=== PATIENT | male | born 1985 | race Caucasian/White ===

== ENCOUNTER → 2016-06-12 | Outpatient (CLI) | payer SELFPAY ==
--- NOTE | 2016-06-12 14:12 | CT ---
EXAMINATION: Non contrast CT head. Coronal and sagittal reformats. HISTORY: Concussion FINDINGS: No evidence of intra or extra axial hemorrhage, mass, midline shift, hydrocephalus or edema. No hypoattenuation changes in the major vascular territories to suggest acute infarct. No abnormal intracranial calcifications are detected. No evidence of substantial vascular calcifica tions. Mucous retention cyst noted within the maxillary sinuses. The right mastoid air cells are hypoplasti c. There is partial opacification of the right middle ear. Pituitary fossa appears unremarkable. The orbits and globes appear intact. Calvarium is intact. No evidence of skull fracture. IMPRESSION: 1. No acute intracranial findings. 2. Mild opacification of right middle ear, correlate clinically.
--- NOTE | 2016-06-12 15:12 | CT ---
EXAMINATION: CT facial bones HISTORY: Loss of consciousness COMPARISON: Head CT from the same day TECHNIQUE: Axial CT images obtained through the facial bones without contrast. Coronal and sagittal reconstructions obtained. FINDINGS: No displaced nasal bone fractures identified. There is possibly a tiny fracture through th e anterior nasal spine, however chronic appearing. There is mild rightward deviation of the nasal se ptum with a spur. The zygomatic arch appears intact. The orbital and maxillary herrera are intact. The maxilla and mandible are intact. The pterygoid plates are preserved. The visualized upper cervical spine is normal. The temporomandibular joints are symmetric. Partial opacification of the right midd le ears again noted. Mucosal thickening and small retention cysts are noted within the maxillary sin uses. There is mild subcutaneous air within the left submandibular region with mild soft tissue swel ling. IMPRESSION: 1. No acute facial bone fracture identified. 2. Partial opacification of the right middle ear. 3. Mild paranasal sinus disease. 4. Probable left submandibular laceration with a trace subcutaneous changes emphysema.
== END ==
LOC: MW.CT 13:01
PROVIDERS: ATTEND General Practice
DX: S06.0X9A Concussion with loss of consciousness of unspecified duration, initial encounter (principal); S00.83XA Contusion of other part of head, initial encounter; H74.8X1 Other specified disorders of right middle ear and mastoid; J34.9 Unspecified disorder of nose and nasal sinuses
CPT/HCPCS: 70450; 70450-26; 70486; 70486-26

== ENCOUNTER 2017-12-25 08:47 | Emergency (ER) | payer BC ==
[2017-12-25] MEDS ORDERED: Ondansetron 4 MG/2 ML SDV IVPUSH ONE (09:18)
[2017-12-25] MEDS ORDERED: Ketorolac 30 MG/ML SDV IVPUSH ONE (09:18)
[2017-12-25] MEDS ORDERED: Sodium Chloride 0.9% 1,000 ML IV ONE (09:18)
--- NOTE | 2017-12-25 09:25 | EDM.PDOC ---
<Chasity Torres - Last Filed: 12/25/17 13:52> ED HPI GENERAL MEDICAL PROBLEM - General Chief Complaint: Abdominal Pain Stated Complaint: LOWER ABD AND BACK PAIN Time Seen by Provider: 12/25/17 09:05 Source of Information: Reports: Patient History Limitations: Reports: No Limitations - History of Present Illness INITIAL COMMENTS - FREE TEXT/NARRATIVE: This patient with Dr. Zurita. Patient's CT showed duodenitis, patient was given pain meds he is currently on Protonix is to continue this. This follow-up is primary care or treatment ER symptoms worsen or change. Patient was given pain meds with decrease in blood pressure. - Related Data Allergies Allergy/AdvReac Type Severity Reaction Status Date / Time No Known Allergies Allergy Verified 12/25/17 09:02 Home Meds: Home Meds Metoprolol Succinate [Toprol XL] 25 mg PO DAILY 12/25/17 [History] Pantoprazole Sodium [Protonix] 40 mg PO DAILY 12/25/17 [History] QUEtiapine Fumarate [Seroquel] 100 mg PO BEDTIME 12/25/17 [History] traMADol HCl [Tramadol HCl] 50 mg PO Q6H PRN #16 tablet 12/25/17 [Rx] ED ROS GENERAL - Review of Systems Review Of Systems: ROS reveals no pertinent complaints other than HPI. Course - Vital Signs Last Recorded V/S: Last Vital Signs Temp 96.6 F 12/25/17 08:59 Pulse 96 12/25/17 12:50 Resp 20 12/25/17 08:59 BP 150/98 H 12/25/17 12:50 Pulse Ox 97 12/25/17 12:50 - Orders/Labs/Meds Labs: Laboratory Tests 12/25/17 12/25/17 12/25/17 Range/Units 09:35 09:35 09:35 WBC 11.91 H (4.0-11.0) K/uL RBC 4.80 (4.50-5.90) M/uL Hgb 16.0 (13.0-17.0) g/dL Hct 45.9 (38.0-50.0) % MCV 95.6 (80.0-98.0) fL MCH 33.3 H (27.0-32.0) pg MCHC 34.9 (31.0-37.0) g/dL RDW Std Deviation 50.7 (28.0-62.0) fl RDW Coeff of Venkatesh 15 (11.0-15.0) % Plt Count 231 (150-400) K/uL MPV 10.60 (7.40-12.00) fL Neut % (Auto) 65.3 (48.0-80.0) % Lymph % (Auto) 21.3 (16.0-40.0) % [place] % (Auto) 9.8 (0.0-15.0) % Eos % (Auto) 3.3 (0.0-7.0) % Baso % (Auto) 0.3 (0.0-1.5) % Neut # (Auto) 7.8 H (1.4-5.7) K/uL Lymph # (Auto) 2.5 H (0.6-2.4) K/uL [place] # (Auto) 1.2 H (0.0-0.8) K/uL Eos # (Auto) 0.4 (0.0-0.7) K/uL Baso # (Auto) 0.0 (0.0-0.1) K/uL Nucleated RBC % 0.0 /100WBC Nucleated RBCs # 0 K/uL Sodium 139 (136-148) mmol/L Potassium 3.2 L (3.5-5.1) mmol/L Chloride 103 (98-107) mmol/L Carbon Dioxide 27.9 (21.0-32.0) mmol/L BUN 8 (7.0-18.0) mg/dL Creatinine 0.9 (0.8-1.3) mg/dL Est Cr Clr Drug Dosing 141.99 mL/min Estimated GFR (MDRD) > 60.0 ml/min Glucose 121 H (74-106) mg/dL Calcium 8.5 (8.5-10.1) mg/dL Total Bilirubin 0.7 (0.2-1.0) mg/dL AST 18 (15-37) IU/L ALT 42 (14-63) IU/L Alkaline Phosphatase 55 (46-116) U/L Total Protein 6.9 (6.4-8.2) g/dL Albumin 3.4 (3.4-5.0) g/dL Globulin 3.5 (2.0-3.5) g/dL Albumin/Globulin Ratio 1.0 L (1.3-2.8) Lipase 143 (73-393) U/L Urine Color YELLOW Urine Appearance CLEAR Urine pH 6.5 (5.0-8.0) Ur Specific [place] 1.015 (1.001-1.035) Urine Protein NEGATIVE (NEGATIVE) mg/dL Urine Glucose (UA) NEGATIVE (NEGATIVE) mg/dL Urine Ketones NEGATIVE (NEGATIVE) mg/dL Urine Occult Blood NEGATIVE (NEGATIVE) Urine Nitrite NEGATIVE (NEGATIVE) Urine Bilirubin NEGATIVE (NEGATIVE) Urine Urobilinogen 0.2 (<2.0) EU/dL Ur Leukocyte Esterase NEGATIVE (NEGATIVE) Urine RBC NONE SEEN (0-2/HPF) Urine WBC 2-3 (0-5/HPF) Ur Epithelial Cells FEW (NONE-FEW) Amorphous Sediment LIGHT (NEGATIVE) Urine Bacteria NOT SEEN (NEGATIVE) Urine Mucus LIGHT (NONE-MOD) Meds: Medications Discontinued Medications Generic Name Dose Route Start Last Admin Trade Name Freq PRN Reason Stop Dose Admin Hydromorphone HCl 1 mg 12/25/17 12:26 12/25/17 12:36 Dilaudid IM 12/25/17 12:27 1 mg ONETIME ONE Administration Sodium Chloride 1,000 mls @ 999 mls/hr 12/25/17 09:18 12/25/17 09:39 Normal Saline IV 12/25/17 10:18 999 mls/hr STAT ONE Administration Ketorolac Tromethamine 30 mg 12/25/17 09:18 12/25/17 09:39 Toradol IVPUSH 12/25/17 09:19 30 mg ONETIME ONE Administration Ondansetron HCl 4 mg 12/25/17 09:18 12/25/17 09:39 Zofran IVPUSH 12/25/17 09:19 4 mg ONETIME ONE Administration Ondansetron HCl 4 mg 12/25/17 12:26 12/25/17 12:36 Zofran Odt PO 12/25/17 12:27 4 mg ONETIME ONE Administration Departure - Departure Time of Disposition: 12:20 Disposition: Home, Self-Care 01 Condition: Good Clinical Impression: Duodenitis, Uncontrolled hypertension Clinical Impression: (Ruled Out): Well-controlled hypertension - Discharge Information *PRESCRIPTION DRUG MONITORING PROGRAM REVIEWED*: No *COPY OF PRESCRIPTION DRUG MONITORING REPORT IN PATIENT MACARIO: No Prescriptions: traMADol HCl [Tramadol HCl] 50 mg PO Q6H PRN #16 tablet PRN Reason: Pain Instructions: Hypertension, [id number], Duodenitis Referrals: PCP,None [Primary Care Provider] - Forms: ED Department Discharge Additional Instructions: The following information is given to patients seen in the emergency department who are being discharged to home. This information is to outline your options for follow-up care. We provide all patients seen in our emergency department with a follow-up referral. The need for follow-up, as well as the timing and circumstances, are variable depending upon the specifics of your emergency department visit. If you don't have a primary care physician on staff, we will provide you with a referral. We always advise you to contact your personal physician following an emergency department visit to inform them of the circumstance of the visit and for follow-up with them and/or the need for any referrals to a consulting specialist. The emergency department will also refer you to a specialist when appropriate. This referral assures that you have the opportunity for follow-up care with a specialist. All of these measure are taken in an effort to provide you with optimal care, which includes your follow-up. Under all circumstances we always encourage you to contact your private physician who remains a resource for coordinating your care. When calling for follow-up care, please make the office aware that this follow-up is from your recent emergency room visit. If for any reason you are refused follow-up, please contact the [facility] Emergency Department at and asked to speak to the emergency department charge nurse. Follow-up with primary care return if symptoms worsen or change. [facility] [address] [place] [id number] <Sophia Zurita - Last Filed: 12/25/17 18:06> ED HPI GENERAL MEDICAL PROBLEM - History of Present Illness INITIAL COMMENTS - FREE TEXT/NARRATIVE: HISTORY AND PHYSICAL: History of present illness: The patient is a 32-year-old male who presents to the ER with 2 day history of right-sided flank, right lower quadrant and midepigastric pain. The patient reports that the pain is sharp, constant, and rates it 8-9/10. Associated symptoms include nausea/ vomiting. Yesterday he had burning and trouble urinating but this has improved today. The patient denies any constipation, diarrhea, blood in the stool/urine or fever, chills. Last bowel movement was this morning. Patient has a past history of kidney stones and states the pain is very similar. The patient also has a history of ulcer for which he takes Protonix. [] Review of systems: As per history of present illness and below otherwise all systems reviewed and negative. Past medical history: As per history of present illness and as reviewed below otherwise noncontributory. Surgical history: As per history of present illness and as reviewed below otherwise noncontributory. Social history: No reported history of drug or alcohol abuse. Family history: As per history of present illness and as reviewed below otherwise noncontributory. Physical exam: HEENT: Atraumatic, normocephalic, pupils reactive, negative for conjunctival pallor or scleral icterus, mucous membranes dry, throat clear, neck supple, nontender, trachea midline. Lungs: Clear to auscultation, breath sounds equal bilaterally, chest nontender. Heart: S1S2, regular, negative for clicks, rubs, or JVD. Abdomen: Soft, nondistended, tender to palpation right flank, RLQ, RUQ, no rebound or guarding. Negative for masses or hepatosplenomegaly. Positive for costovertebral tenderness on right.. Pelvis: Stable nontender. Genitourinary: Deferred. Rectal: Deferred. Extremities: Atraumatic, negative for cords or calf pain. Neurovascular unremarkable. Neuro: Awake, alert, oriented. Cranial nerves II through XII unremarkable. Cerebellum unremarkable. Motor and sensory unremarkable throughout. Exam nonfocal. Diagnostics: [CBC, CMP, lipase, UA, CT ab/pelvis with and without contrast] Therapeutics: [IV fluids, Zofran, and Toradol. Patient does not want anything stronger than toradol, no narcotics.] Impression: [abdominal pain, nephropathies vs ulcer vs appendicitis] Plan: [Care transitioned to Dr. Torres, CT pending] Definitive disposition and diagnosis as appropriate pending reevaluation and review of above. Abdomen Pain Score (Numeric/FACES): 9 Past Medical History Cardiovascular History: Reports: Hypertension Genitourinary History: Reports: Renal Calculus - Infectious Disease History Infectious Disease History: Reports: Chicken Pox, MRSA - Past Surgical History HEENT Surgical History: Reports: Tonsillectomy, Other (See Below) Other HEENT Surgeries/Procedures: rhinoplasty GI Surgical History: Reports: Cholecystectomy Social & Family History - Family History Family Medical History: Noncontributory - Tobacco Use Smoking Status *Q: Current Every Day Smoker Years of Tobacco use: 10 Packs/Tins Daily: 1 - Caffeine Use Caffeine Use: Reports: Energy Drinks - Recreational Drug Use Recreational Drug Use: No ED ROS GENERAL - Review of Systems Review Of Systems: See Below (see dictation) ED EXAM, GENERAL - Physical Exam Exam: See Below (see dictation) Course - Orders/Labs/Meds Labs: Laboratory Tests 12/25/17 12/25/17 12/25/17 Range/Units 09:35 09:35 09:35 WBC 11.91 H (4.0-11.0) K/uL RBC 4.80 (4.50-5.90) M/uL Hgb 16.0 (13.0-17.0) g/dL Hct 45.9 (38.0-50.0) % MCV 95.6 (80.0-98.0) fL MCH 33.3 H (27.0-32.0) pg MCHC 34.9 (31.0-37.0) g/dL RDW Std Deviation 50.7 (28.0-62.0) fl RDW Coeff of Venkatesh 15 (11.0-15.0) % Plt Count 231 (150-400) K/uL MPV 10.60 (7.40-12.00) fL Neut % (Auto) 65.3 (48.0-80.0) % Lymph % (Auto) 21.3 (16.0-40.0) % [place] % (Auto) 9.8 (0.0-15.0) % Eos % (Auto) 3.3 (0.0-7.0) % Baso % (Auto) 0.3 (0.0-1.5) % Neut # (Auto) 7.8 H (1.4-5.7) K/uL Lymph # (Auto) 2.5 H (0.6-2.4) K/uL [place] # (Auto) 1.2 H (0.0-0.8) K/uL Eos # (Auto) 0.4 (0.0-0.7) K/uL Baso # (Auto) 0.0 (0.0-0.1) K/uL Nucleated RBC % 0.0 /100WBC Nucleated RBCs # 0 K/uL Sodium 139 (136-148) mmol/L Potassium 3.2 L (3.5-5.1) mmol/L Chloride 103 (98-107) mmol/L Carbon Dioxide 27.9 (21.0-32.0) mmol/L BUN 8 (7.0-18.0) mg/dL Creatinine 0.9 (0.8-1.3) mg/dL Est Cr Clr Drug Dosing 141.99 mL/min Estimated GFR (MDRD) > 60.0 ml/min Glucose 121 H (74-106) mg/dL Calcium 8.5 (8.5-10.1) mg/dL Total Bilirubin 0.7 (0.2-1.0) mg/dL AST 18 (15-37) IU/L ALT 42 (14-63) IU/L Alkaline Phosphatase 55 (46-116) U/L Total Protein 6.9 (6.4-8.2) g/dL Albumin 3.4 (3.4-5.0) g/dL Globulin 3.5 (2.0-3.5) g/dL Albumin/Globulin Ratio 1.0 L (1.3-2.8) Lipase 143 (73-393) U/L Urine Color YELLOW Urine Appearance CLEAR Urine pH 6.5 (5.0-8.0) Ur Specific [place] 1.015 (1.001-1.035) Urine Protein NEGATIVE (NEGATIVE) mg/dL Urine Glucose (UA) NEGATIVE (NEGATIVE) mg/dL Urine Ketones NEGATIVE (NEGATIVE) mg/dL Urine Occult Blood NEGATIVE (NEGATIVE) Urine Nitrite NEGATIVE (NEGATIVE) Urine Bilirubin NEGATIVE (NEGATIVE) Urine Urobilinogen 0.2 (<2.0) EU/dL Ur Leukocyte Esterase NEGATIVE (NEGATIVE) Urine RBC NONE SEEN (0-2/HPF) Urine WBC 2-3 (0-5/HPF) Ur Epithelial Cells FEW (NONE-FEW) Amorphous Sediment LIGHT (NEGATIVE) Urine Bacteria NOT SEEN (NEGATIVE) Urine Mucus LIGHT (NONE-MOD) Meds: Medications Discontinued Medications Generic Name Dose Route Start Last Admin Trade Name Deisi PRN Reason Stop Dose Admin Hydromorphone HCl 1 mg 12/25/17 12:26 12/25/17 12:36 Dilaudid IM 12/25/17 12:27 1 mg ONETIME ONE Administration Sodium Chloride 1,000 mls @ 999 mls/hr 12/25/17 09:18 12/25/17 09:39 Normal Saline IV 12/25/17 10:18 999 mls/hr STAT ONE Administration Ketorolac Tromethamine 30 mg 12/25/17 09:18 12/25/17 09:39 Toradol IVPUSH 12/25/17 09:19 30 mg ONETIME ONE Administration Ondansetron HCl 4 mg 12/25/17 09:18 12/25/17 09:39 Zofran IVPUSH 12/25/17 09:19 4 mg ONETIME ONE Administration Ondansetron HCl 4 mg 12/25/17 12:26 12/25/17 12:36 Zofran Odt PO 12/25/17 12:27 4 mg ONETIME ONE Administration
[2017-12-25 10:10] LABS: CHLORIDE,CL 103 mmol/L (98-107); SODIUM,NA 139 mmol/L (136-148)
--- NOTE | 2017-12-25 11:46 | CT ---
CT of the abdomen and pelvis with and without contrast. HISTORY: Pain TECHNIQUE: Axial CT images were obtained of the abdomen and pelvis before and following administration of 100 mL of Isovue-370 in the left and without complication. Coronal and sagittal reconstructions obtained. FINDINGS: Mild dependent atelectasis. There is moderate fatty infiltration of the liver. Cholecystectomy clips are noted. The adrenal glands and spleen appear normal. No bulky retroperitoneal lymphadenopathy or abdominal ascites. There is moderate stranding adjacent to the duodenum and head of the pancreas. No free air noted. The body and tail of pancreas appear normal. The kidneys enhance and function symmetrically without evidence of obstructive uropathy. Punctate nonobstructing stones noted. The large and small bowel are normal in caliber without evidence of obstruction. No pericolonic inflammation or stranding. Appendix is normal. There is no bulky retroperitoneal lymphadenopathy or abdominal ascites. Urinary bladder is normal. Stable sclerotic changes noted adjacent to the left SI joint. IMPRESSION: 1. Moderate stranding adjacent to the duodenum and less so the pancreas. This most likely represents duodenitis/peptic ulcer disease. Less likely this could represent pancreatitis. 2. Punctate nonobstructing nephrolithiasis. 3. Moderate fatty infiltration of the liver.
[2017-12-25] MEDS ORDERED: Ondansetron 4 MG Tab.DIS PO ONE (12:26)
[2017-12-25] MEDS ORDERED: HYDROmorphone 2 MG/ML SDV IM ONE (12:26)
[2017-12-25 13:00] VITALS: BP 150/98
== END 2017-12-25 12:50 | disposition home or self-care (01) ==
LOC: MW.ED 08:47
DX: K29.80 Duodenitis without bleeding (principal); I10 Essential (primary) hypertension; F17.210 Nicotine dependence, cigarettes, uncomplicated; Z79.899 Other long term (current) drug therapy
CPT/HCPCS: 36415; 74178; 80053; 81001; 83690; 85025; 96361; 96372; 96374; 96375; 99284; A9270; J1170; J1885; J2405; J7040; 99283

== ENCOUNTER 2018-11-24 03:03 | Observation (INO) | payer BC ==
[2018-11-24] MEDS ORDERED: Sodium Chloride 0.9% 1,000 ML IV ONE (03:10)
[2018-11-24] MEDS ORDERED: Pantoprazole 40 MG Vial IVPUSH ONE (03:10)
[2018-11-24] MEDS ORDERED: Ondansetron 4 MG/2 ML SDV IVPUSH ONE (03:10)
[2018-11-24] MEDS ORDERED: Ketorolac 30 MG/ML SDV IVPUSH ONE (03:10)
--- NOTE | 2018-11-24 03:11 | EDM.PDOC ---
ED HPI GENERAL MEDICAL PROBLEM - General Stated Complaint: STOMACH PAIN Time Seen by Provider: 11/24/18 03:11 Source of Information: Reports: Patient - History of Present Illness INITIAL COMMENTS - FREE TEXT/NARRATIVE: HISTORY AND PHYSICAL: History of present illness: [Patient presents with abdominal pain increasing in severity over the last 2 days epigastric radiating to the back no fever he has had some vomiting no chills or sweats no chest pain shortness breath headache dizziness palpitation no bowel or urine symptoms pain is 8 out of 10 radiating to the back as above Review of systems: As per history of present illness and below otherwise all systems reviewed and negative. Past medical history: As per history of present illness and as reviewed below otherwise noncontributory. Surgical history: As per history of present illness and as reviewed below otherwise noncontributory. Social history: No reported history of drug or alcohol abuse. Family history: As per history of present illness and as reviewed below otherwise noncontributory. Physical exam: HEENT: Atraumatic, normocephalic, pupils reactive, negative for conjunctival pallor or scleral icterus, mucous membranes moist, throat clear, neck supple, nontender, trachea midline. Lungs: Clear to auscultation, breath sounds equal bilaterally, chest nontender. Heart: S1S2, regular, negative for clicks, rubs, or JVD. Abdomen: Soft, nondistended, diffuse tenderness with focus in the epigastrium Negative for masses or hepatosplenomegaly. Negative for costovertebral tenderness. Pelvis: Stable nontender. Genitourinary: Deferred. Rectal: Deferred. Extremities: Atraumatic, negative for cords or calf pain. Neurovascular unremarkable. Neuro: Awake, alert, oriented. Cranial nerves II through XII unremarkable. Cerebellum unremarkable. Motor and sensory unremarkable throughout. Exam nonfocal. Diagnostics: CBC CMP lipase UA Abdomen pelvis with] Therapeutics: [Saline Zofran Toradol Morphine ] Impression: Clinical pancreatitis Abdominal pain Definitive disposition and diagnosis as appropriate pending reevaluation and review of above. Right Abdomen Pain Score (Numeric/FACES): 9 - Related Data Allergies Allergy/AdvReac Type Severity Reaction Status Date / Time No Known Allergies Allergy Verified 11/24/18 03:24 Home Meds: Home Meds Metoprolol Succinate [Toprol XL] 50 mg PO DAILY 12/25/17 [History] Pantoprazole Sodium [Protonix] 40 mg PO DAILY 12/25/17 [History] QUEtiapine Fumarate [Seroquel] 100 mg PO BEDTIME 12/25/17 [History] Past Medical History Cardiovascular History: Reports: Hypertension Genitourinary History: Reports: Renal Calculus - Infectious Disease History Infectious Disease History: Reports: Chicken Pox, MRSA - Past Surgical History HEENT Surgical History: Reports: Tonsillectomy, Other (See Below) Other HEENT Surgeries/Procedures: rhinoplasty GI Surgical History: Reports: Cholecystectomy Social & Family History - Family History Family Medical History: Noncontributory - Caffeine Use Caffeine Use: Reports: Energy Drinks ED ROS GENERAL - Review of Systems Review Of Systems: See Below ED EXAM, GENERAL - Physical Exam Exam: See Below Course - Vital Signs Last Recorded V/S: Last Vital Signs Temp 97.4 F 11/24/18 03:20 Pulse 117 H 11/24/18 03:20 Resp 20 11/24/18 03:20 BP 172/115 H 11/24/18 03:20 Pulse Ox 95 11/24/18 03:20 - Orders/Labs/Meds Labs: Laboratory Tests 11/24/18 11/24/18 11/24/18 Range/Units 03:15 03:20 03:20 WBC 13.75 H (4.0-11.0) K/uL RBC 4.53 (4.50-5.90) M/uL Hgb 15.6 (13.0-17.0) g/dL Hct 44.1 (38.0-50.0) % MCV 97.4 (80.0-98.0) fL MCH 34.4 H (27.0-32.0) pg MCHC 35.4 (31.0-37.0) g/dL RDW Std Deviation 47.8 (28.0-62.0) fl RDW Coeff of Venkatesh 14 (11.0-15.0) % Plt Count 256 (150-400) K/uL MPV 10.70 (7.40-12.00) fL Neut % (Auto) 67.5 (48.0-80.0) % Lymph % (Auto) 21.4 (16.0-40.0) % [place] % (Auto) 8.1 (0.0-15.0) % Eos % (Auto) 2.8 (0.0-7.0) % Baso % (Auto) 0.2 (0.0-1.5) % Neut # (Auto) 9.3 H (1.4-5.7) K/uL Lymph # (Auto) 2.9 H (0.6-2.4) K/uL [place] # (Auto) 1.1 H (0.0-0.8) K/uL Eos # (Auto) 0.4 (0.0-0.7) K/uL Baso # (Auto) 0.0 (0.0-0.1) K/uL Nucleated RBC % 0.0 /100WBC Nucleated RBCs # 0 K/uL Sodium 138 (136-148) mmol/L Potassium 3.4 L (3.5-5.1) mmol/L Chloride 100 (98-107) mmol/L Carbon Dioxide 24.9 (21.0-32.0) mmol/L BUN 13 (7.0-18.0) mg/dL Creatinine 1.0 (0.8-1.3) mg/dL Est Cr Clr Drug Dosing 124.40 mL/min Estimated GFR (MDRD) > 60.0 ml/min Glucose 170 H (74-106) mg/dL Calcium 9.3 (8.5-10.1) mg/dL Total Bilirubin 1.1 H (0.2-1.0) mg/dL AST 35 (15-37) IU/L ALT 102 H (14-63) IU/L Alkaline Phosphatase 72 (46-116) U/L Total Protein 6.8 (6.4-8.2) g/dL Albumin 3.5 (3.4-5.0) g/dL Globulin 3.3 (2.6-4.0) g/dL Albumin/Globulin Ratio 1.1 (0.9-1.6) Lipase 318 (73-393) U/L Urine Color YELLOW Urine Appearance CLEAR Urine pH 6.5 (5.0-8.0) Ur Specific [place] 1.020 (1.001-1.035) Urine Protein NEGATIVE (NEGATIVE) mg/dL Urine Glucose (UA) NEGATIVE (NEGATIVE) mg/dL Urine Ketones NEGATIVE (NEGATIVE) mg/dL Urine Occult Blood NEGATIVE (NEGATIVE) Urine Nitrite NEGATIVE (NEGATIVE) Urine Bilirubin SMALL H (NEGATIVE) Urine Ictotest POSITIVE Urine Urobilinogen 2.0 H (<2.0) EU/dL Ur Leukocyte Esterase NEGATIVE (NEGATIVE) Meds: Medications Discontinued Medications Generic Name Dose Route Start Last Admin Trade Name Deisi PRN Reason Stop Dose Admin Sodium Chloride 1,000 mls @ 999 mls/hr 11/24/18 03:10 11/24/18 03:28 Normal Saline IV 11/24/18 04:10 999 mls/hr STAT ONE Administration Iopamidol 100 ml 11/24/18 04:16 11/24/18 04:17 Isovue Multipack-370 (76%) IVPUSH 11/24/18 04:17 100 ml ONETIME STA Administration Ketorolac Tromethamine 30 mg 11/24/18 03:10 11/24/18 03:31 Toradol IVPUSH 11/24/18 03:11 30 mg ONETIME ONE Administration Morphine Sulfate 4 mg 11/24/18 04:45 11/24/18 04:50 Morphine IVPUSH 11/24/18 04:46 4 mg ONETIME ONE Administration Ondansetron HCl 8 mg 11/24/18 03:10 11/24/18 03:29 Zofran IVPUSH 11/24/18 03:11 8 mg ONETIME ONE Administration Pantoprazole Sodium 80 mg 11/24/18 03:10 11/24/18 03:32 Protonix Iv IVPUSH 11/24/18 03:11 80 mg .BOLUS ONE Administration Sodium Chloride 20 ml 11/24/18 03:15 11/24/18 03:32 Normal Saline FLUSH 11/24/18 03:16 20 ml NOW STA Administration Departure - Departure Time of Disposition: 05:39 Disposition: Home, Self-Care 01 Condition: Good Clinical Impression: Pancreatitis, Abdominal pain - Discharge Information Referrals: Harman Cole MD [Primary Care Provider] -
[2018-11-24] MEDS ORDERED: Sodium Chloride 0.9% 20 ML SDV FLUSH STA (03:15)
[2018-11-24 03:51] LABS: BLOOD UREA NITROGEN,BUN 13 mg/dL (7.0-18.0); CARBON DIOXIDE,CO2 24.9 mmol/L (21.0-32.0); CHLORIDE,CL 100 mmol/L (98-107); GLUCOSE RANDOM 170 mg/dL (74-106); LIPASE 318 U/L (73-393); POTASSIUM,K 3.4 mmol/L (3.5-5.1); SODIUM,NA 138 mmol/L (136-148)
[2018-11-24] MEDS ORDERED: Iopamidol 755 MG/ML 500 ML Multipack Bottle IVPUSH STA (04:16)
[2018-11-24] MEDS ORDERED: Morphine 4 MG/ML Syringe IVPUSH ONE (04:45)
--- NOTE | 2018-11-24 05:27 | CT ---
INDICATION: Abdominal pain TECHNIQUE: CT abdomen and pelvis acquired with IV contrast. 100 mL of Isovue 370 administered. COMPARISON: None available FINDINGS: Lower chest: Unremarkable. Liver: Hepatomegaly measuring 26.3 cm craniocaudally. Hepatic steatosis. Spleen: Splenomegaly measuring 15 cm craniocaudally. Pancreas: Stranding adjacent to the pancreatic head and duodenum. Gallbladder and bile ducts: Cholecystectomy. Adrenal glands: Unremarkable. Kidneys: A partially duplicated left renal collecting system. No hydronephrosis. Punctate nonobstructive right renal calcifications. A 1.9 cm left renal parapelvic cyst. A subcentimeter right renal lower pole low-density lesion, too small to characterize. GI tract: No bowel obstruction. A normal appendix. No significant pericolonic changes. Vascular structures: Unremarkable. Lymph nodes: Borderline and shotty sub centimeter upper abdominal lymph nodes, nonspecific. Miscellaneous: No significant free fluid or free air. Pelvic Organs: A partially contracted bladder. An unremarkable prostate. Bones: Degenerative changes of the lumbosacral junction. Ill-defined sclerosis in the posterior left ilium, nonspecific. IMPRESSION: Stranding adjacent to the pancreatic head and duodenum, suggestive of mild pancreatitis, however could represent primary duodenitis. Correlate clinically and with pancreatic enzymes. Hepatosplenomegaly. Hepatic steatosis. Punctate nonobstructive right renal calcifications. Dictated by Charles Leon MD @ 11/24/2018 5:26:04 AM Please note that all CT scans at this facility use dose modulation, iterative reconstruction, and/or weight-based dosing when appropriate to reduce radiation dose to as low as reasonably achievable. Dictated by: Charles Leon MD @ 11/24/2018 05:26:11 (Electronically Signed)
--- NOTE | 2018-11-24 07:01 | PCM.HP.2 ---
H&P History of Present Illness - General Admit Problem/Dx: Admission Diagnosis/Problem Admission Diagnosis/Problem Pancreatitis Right Abdomen Pain Score (Numeric/FACES): 9 - Related Data Allergies/Adverse Reactions: Allergies Allergy/AdvReac Type Severity Reaction Status Date / Time No Known Allergies Allergy Verified 11/24/18 06:58 Home Medications: Home Meds Metoprolol Succinate [Toprol XL] 50 mg PO DAILY 12/25/17 [History] Pantoprazole Sodium [Protonix] 40 mg PO DAILY 12/25/17 [History] QUEtiapine Fumarate [Seroquel] 100 mg PO BEDTIME 12/25/17 [History] Past Medical History Cardiovascular History: Reports: Hypertension Genitourinary History: Reports: Renal Calculus Psychiatric History: Reports: None Hematologic History: Reports: None Immunologic History: Reports: None Oncologic (Cancer) History: Reports: None - Infectious Disease History Infectious Disease History: Reports: Chicken Pox, MRSA - Past Surgical History HEENT Surgical History: Reports: Tonsillectomy, Other (See Below) Other HEENT Surgeries/Procedures: rhinoplasty GI Surgical History: Reports: Cholecystectomy Social & Family History - Family History Family Medical History: Noncontributory - Tobacco Use Smoking Status *Q: Current Every Day Smoker Years of Tobacco use: 5 Packs/Tins Daily: 1 - Caffeine Use Caffeine Use: Reports: Coffee, Energy Drinks, Soda - Alcohol Use Days Per Week of Alcohol Use: 7 Number of Drinks Per Day: 4 Total Drinks Per Week: 28 - Recreational Drug Use Recreational Drug Use: No Exam - Vital Signs Vital Signs: Last Vital Signs Temp 36.1 C 11/24/18 05:58 Pulse 98 11/24/18 05:58 Resp 20 11/24/18 05:58 BP 166/106 H 11/24/18 05:58 Pulse Ox 96 11/24/18 05:58 Weight: 156.081 kg - Patient Data Lab Results Last 24 hrs: Laboratory Results - last 24 hr 11/24/18 11/24/18 11/24/18 Range/Units 03:15 03:20 03:20 WBC 13.75 H (4.0-11.0) K/uL RBC 4.53 (4.50-5.90) M/uL Hgb 15.6 (13.0-17.0) g/dL Hct 44.1 (38.0-50.0) % MCV 97.4 (80.0-98.0) fL MCH 34.4 H (27.0-32.0) pg MCHC 35.4 (31.0-37.0) g/dL RDW Std Deviation 47.8 (28.0-62.0) fl RDW Coeff of Venkatesh 14 (11.0-15.0) % Plt Count 256 (150-400) K/uL MPV 10.70 (7.40-12.00) fL Neut % (Auto) 67.5 (48.0-80.0) % Lymph % (Auto) 21.4 (16.0-40.0) % [place] % (Auto) 8.1 (0.0-15.0) % Eos % (Auto) 2.8 (0.0-7.0) % Baso % (Auto) 0.2 (0.0-1.5) % Neut # (Auto) 9.3 H (1.4-5.7) K/uL Lymph # (Auto) 2.9 H (0.6-2.4) K/uL [place] # (Auto) 1.1 H (0.0-0.8) K/uL Eos # (Auto) 0.4 (0.0-0.7) K/uL Baso # (Auto) 0.0 (0.0-0.1) K/uL Nucleated RBC % 0.0 /100WBC Nucleated RBCs # 0 K/uL Sodium 138 (136-148) mmol/L Potassium 3.4 L (3.5-5.1) mmol/L Chloride 100 (98-107) mmol/L Carbon Dioxide 24.9 (21.0-32.0) mmol/L BUN 13 (7.0-18.0) mg/dL Creatinine 1.0 (0.8-1.3) mg/dL Est Cr Clr Drug Dosing 124.40 mL/min Estimated GFR (MDRD) > 60.0 ml/min Glucose 170 H (74-106) mg/dL Calcium 9.3 (8.5-10.1) mg/dL Total Bilirubin 1.1 H (0.2-1.0) mg/dL AST 35 (15-37) IU/L ALT 102 H (14-63) IU/L Alkaline Phosphatase 72 (46-116) U/L Total Protein 6.8 (6.4-8.2) g/dL Albumin 3.5 (3.4-5.0) g/dL Globulin 3.3 (2.6-4.0) g/dL Albumin/Globulin Ratio 1.1 (0.9-1.6) Lipase 318 (73-393) U/L Urine Color YELLOW Urine Appearance CLEAR Urine pH 6.5 (5.0-8.0) Ur Specific [place] 1.020 (1.001-1.035) Urine Protein NEGATIVE (NEGATIVE) mg/dL Urine Glucose (UA) NEGATIVE (NEGATIVE) mg/dL Urine Ketones NEGATIVE (NEGATIVE) mg/dL Urine Occult Blood NEGATIVE (NEGATIVE) Urine Nitrite NEGATIVE (NEGATIVE) Urine Bilirubin SMALL H (NEGATIVE) Urine Ictotest POSITIVE Urine Urobilinogen 2.0 H (<2.0) EU/dL Ur Leukocyte Esterase NEGATIVE (NEGATIVE) Result Diagrams: 11/24/18 03:20 11/24/18 03:20 Orders Last 24hrs: Active Orders 24 hr Category Date Time Status Admission Status [Patient Status] [ADT] Stat ADT 11/24/18 05:39 Active
--- NOTE | 2018-11-24 07:55 | PCM.HP.2 ---
<Sophia uZrita - Last Filed: 11/24/18 09:31> H&P History of Present Illness - General Date of Service: 11/24/18 Admit Problem/Dx: Admission Diagnosis/Problem Admission Diagnosis/Problem Pancreatitis - History of Present Illness Initial Comments - Free Text/Narative: The patient is a 32-year-old male who presented to the ER with several day history of abdominal pain. Reports he had epigastric and right upper quadrant pain over the weekend that intensified over the last 48 hours. He reports the pain as constant and worse with moving. He had associated vomiting and diarrhea. Denies black or bloody stools and reports the diarrhea as more loose , not watery. Emesis was nonbilious, nonbloody. Patient reports he has a couple mixed drinks every night but has never gone through withdrawal. Reports past medical gastric ulcers, has been on Protonix for years. Last EGD was last year. History of cholecystectomy. In the ER, lab work showed an elevated white count of 13.7, elevated ALT, a lipase of 381. CT of the abdomen, pelvis showed stranding in the pancreatic head and duodenum, possibly pancreatitis versus duodenitis. In the ER he was given pain medication, Zofran, pantoprazole and IV fluids. PCP- Douglas Right Abdomen Pain Score (Numeric/FACES): 9 - Related Data Allergies/Adverse Reactions: Allergies Allergy/AdvReac Type Severity Reaction Status Date / Time No Known Allergies Allergy Verified 11/24/18 06:58 Home Medications: Home Meds Metoprolol Succinate [Toprol XL] 50 mg PO DAILY 12/25/17 [History] Pantoprazole Sodium [Protonix] 40 mg PO DAILY 12/25/17 [History] QUEtiapine Fumarate [Seroquel] 100 mg PO BEDTIME 12/25/17 [History] amLODIPine Besylate [Amlodipine Besylate] 10 mg PO 11/24/18 [History] Past Medical History Cardiovascular History: Reports: Hypertension Gastrointestinal History: Reports: Pancreatitis Genitourinary History: Reports: Renal Calculus Psychiatric History: Reports: None Hematologic History: Reports: None Immunologic History: Reports: None Oncologic (Cancer) History: Reports: None - Infectious Disease History Infectious Disease History: Reports: Chicken Pox, MRSA - Past Surgical History HEENT Surgical History: Reports: Tonsillectomy, Other (See Below) Other HEENT Surgeries/Procedures: rhinoplasty GI Surgical History: Reports: Cholecystectomy Social & Family History - Family History Family Medical History: Noncontributory - Tobacco Use Smoking Status *Q: Current Every Day Smoker Years of Tobacco use: 5 Packs/Tins Daily: 1 - Caffeine Use Caffeine Use: Reports: Coffee, Energy Drinks, Soda - Alcohol Use Days Per Week of Alcohol Use: 7 Number of Drinks Per Day: 4 Total Drinks Per Week: 28 - Recreational Drug Use Recreational Drug Use: No H&P Review of Systems - Review of Systems: Review Of Systems: See Below General: Reports: No Symptoms HEENT: Reports: No Symptoms Pulmonary: Reports: No Symptoms Cardiovascular: Reports: No Symptoms Gastrointestinal: Reports: Abdominal Pain, Diarrhea, Nausea Genitourinary: Reports: No Symptoms Musculoskeletal: Reports: No Symptoms Skin: Reports: No Symptoms Psychiatric: Reports: No Symptoms Neurological: Reports: No Symptoms Hematologic/Lymphatic: Reports: No Symptoms Immunologic: Reports: No Symptoms Exam - Exam Exam: See Below - Vital Signs Vital Signs: Last Vital Signs Temp 97.0 F 11/24/18 05:58 Pulse 98 11/24/18 05:58 Resp 20 11/24/18 05:58 BP 166/106 H 11/24/18 05:58 Pulse Ox 96 11/24/18 05:58 Weight: 156.081 kg - Exam General: Alert, Oriented, Cooperative HEENT: Conjunctiva Clear, Mucosa Moist & [place], Posterior Pharynx Clear, Pupils Equal, Pupils Reactive, TMs Clear Neck: Supple, Trachea Midline Lungs: Clear to Auscultation, Normal Respiratory Effort Cardiovascular: Regular Rate, Regular Rhythm GI/Abdominal Exam: Normal Bowel Sounds, Soft, Tender (epigastric and RUQ) Extremities: No Pedal Edema Skin: Warm, Dry, Intact Psychiatric: Alert, Normal Affect, Normal Mood - Patient Data Lab Results Last 24 hrs: Laboratory Results - last 24 hr 11/24/18 11/24/18 11/24/18 Range/Units 03:15 03:20 03:20 WBC 13.75 H (4.0-11.0) K/uL RBC 4.53 (4.50-5.90) M/uL Hgb 15.6 (13.0-17.0) g/dL Hct 44.1 (38.0-50.0) % MCV 97.4 (80.0-98.0) fL MCH 34.4 H (27.0-32.0) pg MCHC 35.4 (31.0-37.0) g/dL RDW Std Deviation 47.8 (28.0-62.0) fl RDW Coeff of Venkatesh 14 (11.0-15.0) % Plt Count 256 (150-400) K/uL MPV 10.70 (7.40-12.00) fL Neut % (Auto) 67.5 (48.0-80.0) % Lymph % (Auto) 21.4 (16.0-40.0) % [place] % (Auto) 8.1 (0.0-15.0) % Eos % (Auto) 2.8 (0.0-7.0) % Baso % (Auto) 0.2 (0.0-1.5) % Neut # (Auto) 9.3 H (1.4-5.7) K/uL Lymph # (Auto) 2.9 H (0.6-2.4) K/uL [place] # (Auto) 1.1 H (0.0-0.8) K/uL Eos # (Auto) 0.4 (0.0-0.7) K/uL Baso # (Auto) 0.0 (0.0-0.1) K/uL Nucleated RBC % 0.0 /100WBC Nucleated RBCs # 0 K/uL Sodium 138 (136-148) mmol/L Potassium 3.4 L (3.5-5.1) mmol/L Chloride 100 (98-107) mmol/L Carbon Dioxide 24.9 (21.0-32.0) mmol/L BUN 13 (7.0-18.0) mg/dL Creatinine 1.0 (0.8-1.3) mg/dL Est Cr Clr Drug Dosing 124.40 mL/min Estimated GFR (MDRD) > 60.0 ml/min Glucose 170 H (74-106) mg/dL Calcium 9.3 (8.5-10.1) mg/dL Total Bilirubin 1.1 H (0.2-1.0) mg/dL AST 35 (15-37) IU/L ALT 102 H (14-63) IU/L Alkaline Phosphatase 72 (46-116) U/L Total Protein 6.8 (6.4-8.2) g/dL Albumin 3.5 (3.4-5.0) g/dL Globulin 3.3 (2.6-4.0) g/dL Albumin/Globulin Ratio 1.1 (0.9-1.6) Lipase 318 (73-393) U/L Urine Color YELLOW Urine Appearance CLEAR Urine pH 6.5 (5.0-8.0) Ur Specific [place] 1.020 (1.001-1.035) Urine Protein NEGATIVE (NEGATIVE) mg/dL Urine Glucose (UA) NEGATIVE (NEGATIVE) mg/dL Urine Ketones NEGATIVE (NEGATIVE) mg/dL Urine Occult Blood NEGATIVE (NEGATIVE) Urine Nitrite NEGATIVE (NEGATIVE) Urine Bilirubin SMALL H (NEGATIVE) Urine Ictotest POSITIVE Urine Urobilinogen 2.0 H (<2.0) EU/dL Ur Leukocyte Esterase NEGATIVE (NEGATIVE) Result Diagrams: 11/24/18 03:20 11/24/18 03:20 - Problem List (1) HTN (hypertension) SNOMED Code(s): 45428608 ICD Code: I10 - ESSENTIAL (PRIMARY) HYPERTENSION Status: Acute Current Visit: Yes (2) Insomnia SNOMED Code(s): 223522585 ICD Code: G47.00 - INSOMNIA, UNSPECIFIED Status: Acute Current Visit: Yes (3) Abdominal pain SNOMED Code(s): 98410566 ICD Code: R10.9 - UNSPECIFIED ABDOMINAL PAIN Status: Acute Current Visit : Yes (4) Pancreatitis SNOMED Code(s): 75970930 ICD Code: K85.90 - ACUTE PANCREATITIS WITHOUT NECROSIS OR INFECTION, UNSP Status: Acute Current Visit: Yes (5) Duodenitis SNOMED Code(s): 39483579 ICD Code: K29.80 - DUODENITIS WITHOUT BLEEDING Status: Acute Current Visit: No Problem List Initiated/Reviewed/Updated: Yes Orders Last 24hrs: Active Orders 24 hr Category Date Time Status Admission Status [Patient Status] [ADT] Stat ADT 11/24/18 05:39 Active Assessment/Plan Comment:: 1. Admit for observation 2. Code status- full 3. Vitals per routine 4. I/Os per routine 5. Diet- clear liquid 6. DVT prophylaxis with lovenox 7. Epigastric/RUQ pain secondary to chronic pancreatitis vs duodenitis- No signifcant elevation in lipase but stranding seen on CT. Clear liquid diet, IVF , zofran prn, morphine prn. Check lipid pane. Continue IV protonix. 8. Chronic conditions- HTN, insomnia- continue home meds <Artur Holley - Last Filed: 11/24/18 16:28> H&P History of Present Illness - General Admit Problem/Dx: Admission Diagnosis/Problem Admission Diagnosis/Problem Pancreatitis I have seen and examined the patient independently of Dr. Parminder DO. I have reviewed and agree with the plan of care as outlined for this patient by her. I have discussed the case with her. Please see orders. Exam - Vital Signs Vital Signs: Last Vital Signs Temp 36.3 C 11/24/18 16:00 Pulse 76 11/24/18 16:00 Resp 22 H 11/24/18 16:00 BP 162/82 H 11/24/18 16:00 Pulse Ox 98 11/24/18 16:00 - Patient Data Lab Results Last 24 hrs: Laboratory Results - last 24 hr 11/24/18 11/24/18 11/24/18 Range/Units 03:15 03:20 03:20 WBC 13.75 H (4.0-11.0) K/uL RBC 4.53 (4.50-5.90) M/uL Hgb 15.6 (13.0-17.0) g/dL Hct 44.1 (38.0-50.0) % MCV 97.4 (80.0-98.0) fL MCH 34.4 H (27.0-32.0) pg MCHC 35.4 (31.0-37.0) g/dL RDW Std Deviation 47.8 (28.0-62.0) fl RDW Coeff of Venkatesh 14 (11.0-15.0) % Plt Count 256 (150-400) K/uL MPV 10.70 (7.40-12.00) fL Neut % (Auto) 67.5 (48.0-80.0) % Lymph % (Auto) 21.4 (16.0-40.0) % [place] % (Auto) 8.1 (0.0-15.0) % Eos % (Auto) 2.8 (0.0-7.0) % Baso % (Auto) 0.2 (0.0-1.5) % Neut # (Auto) 9.3 H (1.4-5.7) K/uL Lymph # (Auto) 2.9 H (0.6-2.4) K/uL [place] # (Auto) 1.1 H (0.0-0.8) K/uL Eos # (Auto) 0.4 (0.0-0.7) K/uL Baso # (Auto) 0.0 (0.0-0.1) K/uL Nucleated RBC % 0.0 /100WBC Nucleated RBCs # 0 K/uL Sodium 138 (136-148) mmol/L Potassium 3.4 L (3.5-5.1) mmol/L Chloride 100 (98-107) mmol/L Carbon Dioxide 24.9 (21.0-32.0) mmol/L BUN 13 (7.0-18.0) mg/dL Creatinine 1.0 (0.8-1.3) mg/dL Est Cr Clr Drug Dosing 124.40 mL/min Estimated GFR (MDRD) > 60.0 ml/min Glucose 170 H (74-106) mg/dL Calcium 9.3 (8.5-10.1) mg/dL Total Bilirubin 1.1 H (0.2-1.0) mg/dL AST 35 (15-37) IU/L ALT 102 H (14-63) IU/L Alkaline Phosphatase 72 (46-116) U/L Total Protein 6.8 (6.4-8.2) g/dL Albumin 3.5 (3.4-5.0) g/dL Globulin 3.3 (2.6-4.0) g/dL Albumin/Globulin Ratio 1.1 (0.9-1.6) Triglycerides (0-200) mg/dL Cholesterol (50-200) mg/dL LDL Cholesterol, Calc (60-180) mg/dL VLDL Cholesterol (5-55) mg/dL HDL Cholesterol (40-60) mg/dL Cholesterol/HDL Ratio (3.3-6.0) Lipase 318 (73-393) U/L Urine Color YELLOW Urine Appearance CLEAR Urine pH 6.5 (5.0-8.0) Ur Specific [place] 1.020 (1.001-1.035) Urine Protein NEGATIVE (NEGATIVE) mg/dL Urine Glucose (UA) NEGATIVE (NEGATIVE) mg/dL Urine Ketones NEGATIVE (NEGATIVE) mg/dL Urine Occult Blood NEGATIVE (NEGATIVE) Urine Nitrite NEGATIVE (NEGATIVE) Urine Bilirubin SMALL H (NEGATIVE) Urine Ictotest POSITIVE Urine Urobilinogen 2.0 H (<2.0) EU/dL Ur Leukocyte Esterase NEGATIVE (NEGATIVE) 11/24/18 Range/Units 03:20 WBC (4.0-11.0) K/uL RBC (4.50-5.90) M/uL Hgb (13.0-17.0) g/dL Hct (38.0-50.0) % MCV (80.0-98.0) fL MCH (27.0-32.0) pg MCHC (31.0-37.0) g/dL RDW Std Deviation (28.0-62.0) fl RDW Coeff of Venkatesh (11.0-15.0) % Plt Count (150-400) K/uL MPV (7.40-12.00) fL Neut % (Auto) (48.0-80.0) % Lymph % (Auto) (16.0-40.0) % [place] % (Auto) (0.0-15.0) % Eos % (Auto) (0.0-7.0) % Baso % (Auto) (0.0-1.5) % Neut # (Auto) (1.4-5.7) K/uL Lymph # (Auto) (0.6-2.4) K/uL [place] # (Auto) (0.0-0.8) K/uL Eos # (Auto) (0.0-0.7) K/uL Baso # (Auto) (0.0-0.1) K/uL Nucleated RBC % /100WBC Nucleated RBCs # K/uL Sodium (136-148) mmol/L Potassium (3.5-5.1) mmol/L Chloride (98-107) mmol/L Carbon Dioxide (21.0-32.0) mmol/L BUN (7.0-18.0) mg/dL Creatinine (0.8-1.3) mg/dL Est Cr Clr Drug Dosing mL/min Estimated GFR (MDRD) ml/min Glucose (74-106) mg/dL Calcium (8.5-10.1) mg/dL Total Bilirubin (0.2-1.0) mg/dL AST (15-37) IU/L ALT (14-63) IU/L Alkaline Phosphatase (46-116) U/L Total Protein (6.4-8.2) g/dL Albumin (3.4-5.0) g/dL Globulin (2.6-4.0) g/dL Albumin/Globulin Ratio (0.9-1.6) Triglycerides 380 H (0-200) mg/dL Cholesterol 246 H (50-200) mg/dL LDL Cholesterol, Calc 128 (60-180) mg/dL VLDL Cholesterol 76 H (5-55) mg/dL HDL Cholesterol 42 (40-60) mg/dL Cholesterol/HDL Ratio 5.9 (3.3-6.0) Lipase (73-393) U/L Urine Color Urine Appearance Urine pH (5.0-8.0) Ur Specific [place] (1.001-1.035) Urine Protein (NEGATIVE) mg/dL Urine Glucose (UA) (NEGATIVE) mg/dL Urine Ketones (NEGATIVE) mg/dL Urine Occult Blood (NEGATIVE) Urine Nitrite (NEGATIVE) Urine Bilirubin (NEGATIVE) Urine Ictotest Urine Urobilinogen (<2.0) EU/dL Ur Leukocyte Esterase (NEGATIVE) Result Diagrams: 11/24/18 03:20 11/24/18 03:20 Orders Last 24hrs: Active Orders 24 hr Category Date Time Status Admission Status [Patient Status] [ADT] Stat ADT 11/24/18 05:39 Active Intake and Output [RC] Q12H Care 11/24/18 08:00 Active Vital Signs [RC] PER UNIT ROUTINE Care 11/24/18 08:00 Active Clear Liquid Diet [DIET] Diet 11/24/18 Lunch Active BASIC METABOLIC PANEL,BMP [CHEM] AM Lab 11/25/18 05:11 Ordered CBC WITH AUTO DIFF [HEME] AM Lab 11/25/18 05:11 Ordered Acetaminophen [Tylenol] Med 11/24/18 09:33 Active 650 mg PO Q4H PRN Enoxaparin [Lovenox] Med 11/24/18 08:00 Active 40 mg SUBCUT Q24H Metoprolol Succinate [Toprol XL] Med 11/24/18 09:00 Active 50 mg PO DAILY Morphine Med 11/24/18 10:06 Active 2 mg IVPUSH Q4H PRN Ondansetron [Zofran] Med 11/24/18 08:00 Active 4 mg IVPUSH Q4H PRN Pantoprazole [ProTONIX IV] 40 mg Med 11/24/18 08:15 Active Sodium Chloride 0.9% [Normal Saline] 10 ml IV Q24H QUEtiapine [SEROquel] Med 11/24/18 21:00 Active 100 mg PO BEDTIME Sodium Chloride 0.9% [Normal Saline] 1,000 ml Med 11/24/18 08:00 Active IV ASDIRECTED Resuscitation Status Routine Resus Stat 11/24/18 08:00 Ordered Medication Orders Acetaminophen (Tylenol) 650 mg PO Q4H PRN PRN Reason: Pain/Fever Last Admin: 11/24/18 11:28 Dose: 650 mg Enoxaparin Sodium (Lovenox) 40 mg SUBCUT Q24H [facility] Last Admin: 11/24/18 08:25 Dose: 40 mg Sodium Chloride (Normal Saline) 1,000 mls @ 150 mls/hr IV ASDIRECTED [facility] Last Admin: 11/24/18 09:51 Dose: 150 mls/hr Pantoprazole Sodium 40 mg/ (Sodium Chloride) 10 mls @ 300 mls/hr IV Q24H [facility] Last Admin: 11/24/18 08:25 Dose: 300 mls/hr Metoprolol Succinate (Toprol Xl) 50 mg PO DAILY [facility] Last Admin: 11/24/18 08:24 Dose: 50 mg Morphine Sulfate (Morphine) 2 mg IVPUSH Q4H PRN PRN Reason: Abdominal Pain Last Admin: 11/24/18 12:28 Dose: 2 mg Ondansetron HCl (Zofran) 4 mg IVPUSH Q4H PRN PRN Reason: Nausea/Vomiting Last Admin: 11/24/18 11:28 Dose: 4 mg Quetiapine Fumarate (Seroquel) 100 mg PO BEDTIME [facility]
[2018-11-24] MEDS ORDERED: Ondansetron 4 MG/2 ML SDV IVPUSH PRN (08:00)
[2018-11-24] MEDS ORDERED: Morphine 2 MG/ML Syringe IVPUSH PRN (08:03)
[2018-11-24] MEDS: Metoprolol Succinate 25 MG Tab.ER PO SCH (08:24)
[2018-11-24] MEDS: Enoxaparin 40 MG/0.4 ML Syringe SUBCUT SCH (08:25)
[2018-11-24] MEDS: Pantoprazole 40 MG in Sodium Chloride 0.9% 10 ML IV SCH (08:25)
[2018-11-24] MEDS: Sodium Chloride 0.9% 1,000 ML IV SCH ×3 (09:51→23:46)
[2018-11-24] MEDS: Acetaminophen 325 MG Tab PO PRN (11:28)
[2018-11-24] MEDS: Morphine 2 MG/ML Syringe IVPUSH PRN ×3 (12:28→21:43)
[2018-11-25] MEDS: Sodium Chloride 0.9% 1,000 ML IV SCH (06:39)
[2018-11-25 07:12] LABS: BLOOD UREA NITROGEN,BUN 9 mg/dL (7.0-18.0); CHLORIDE,CL 104 mmol/L (98-107); GLUCOSE RANDOM 119 mg/dL (74-106); POTASSIUM,K 3.7 mmol/L (3.5-5.1); SODIUM,NA 140 mmol/L (136-148)
--- NOTE | 2018-11-25 07:45 | PCM.DCSUM1 ---
<Sophia Zurita - Last Filed: 11/25/18 10:16> Discharge Summary - Hospital Course HPI Initial Comments: Admission Date: 11/24/18 Discharge Date: 11/25/18 Admission Diagnosis: 1. Epigatric pain/RUQ pain- chronic pancreatitis vs duodenitis 2. Chronic conditions- HTN and insomnia Discharge Diagnosis: 1. Epigastric pain/RUQ pain- chronic pancreatitis vs duodenitis 2. Chronic conditions- HTN and insomnia 3. Hyperlipidemia Procedures: None Consults: None Hospital Course: The patient is 32-year-old male presented to the ER with several day history of abdominal pain. Pain was epigastric and right upper quadrant. Patient has a history of gastric ulcers and drinks several alcoholic beverages nightly. In the ER, lab work showed a white count of 13.7 which resolved over course of admission and lipase of 381. CT of the abdomen and pelvis showed stranding in the pancreatic head, duodenum, possibly pancreatitis versus duodenitis. He was admitted to the medical surgical floor where he was started on IV fluids and pain control. His diet was advanced as tolerated. He was continued on Protonix. A lipid panel was obtained and hyperlipidemia. The patient will be discharged on a new medication, Lipitor. He was continued on his home meds for his hypertension and insomnia. By day of discharge he was eating a regular diet without pain and stated he was ready to go home. Disposition: Home Discharge Condition: vitals stable, tolerating oral diet, ambulating without difficulty, symptom improvement Discharge Instructions: regular diet as tolerated, activity as tolerated, take medications as prescribed. Symptoms to report to physician include fever/chills , chest pain, shortness of breath, abdominal pain, erythema, drainage/discharge , or not improving as expected. Discharge Medications: Metoprolol Succinate [Toprol XL] 50 mg PO DAILY Pantoprazole Sodium [Protonix] 40 mg PO DAILY QUEtiapine Fumarate [Seroquel] 100 mg PO BEDTIME amLODIPine Besylate [Amlodipine Besylate] 10 mg PO atorvaSTATin Calcium [Lipitor] 40 mg PO DAILY Follow-up: 1. PCP- Dr. Cole - Discharge Data Discharge Date: 11/25/18 Discharge Disposition: Home, Self-Care 01 Condition: Fair - Discharge Diagnosis/Problem(s) (1) HTN (hypertension) SNOMED Code(s): 19821422 ICD Code: I10 - ESSENTIAL (PRIMARY) HYPERTENSION Status: Acute Current Visit: Yes (2) Insomnia SNOMED Code(s): 962439958 ICD Code: G47.00 - INSOMNIA, UNSPECIFIED Status: Acute Current Visit: Yes (3) Abdominal pain SNOMED Code(s): 37933126 ICD Code: R10.9 - UNSPECIFIED ABDOMINAL PAIN Status: Acute Current Visit : Yes (4) Pancreatitis SNOMED Code(s): 17058176 ICD Code: K85.90 - ACUTE PANCREATITIS WITHOUT NECROSIS OR INFECTION, UNSP Status: Acute Current Visit: Yes (5) Duodenitis SNOMED Code(s): 34851483 ICD Code: K29.80 - DUODENITIS WITHOUT BLEEDING Status: Acute Current Visit: No - Patient Instructions Diet: Usual Diet as Tolerated, No Alcoholic Beverages Activity: As Tolerated Driving: May Drive Today Showering/Bathing: May Shower Notify Provider of: Fever, Increased Pain, Swelling and Redness, Drainage, Nausea and/or Vomiting Other/Special Instructions: Additional symptoms include chest pain, shortness of breath, or abdominal pain. - Discharge Plan *PRESCRIPTION DRUG MONITORING PROGRAM REVIEWED*: No *COPY OF PRESCRIPTION DRUG MONITORING REPORT IN PATIENT MACARIO: No Prescriptions/Med Rec: atorvaSTATin Calcium [Lipitor] 40 mg PO DAILY 30 Days #30 tablet Home Medications: Home Meds Metoprolol Succinate [Toprol XL] 50 mg PO DAILY 12/25/17 [History] Pantoprazole Sodium [Protonix] 40 mg PO DAILY 12/25/17 [History] QUEtiapine Fumarate [Seroquel] 100 mg PO BEDTIME 12/25/17 [History] amLODIPine Besylate [Amlodipine Besylate] 10 mg PO 11/24/18 [History] atorvaSTATin Calcium [Lipitor] 40 mg PO DAILY 30 Days #30 tablet 11/25/18 [Rx] Patient Handouts: Acute Pancreatitis, [id number], Atorvastatin tablets Referrals: [facility] [Outside] - 12/02/18 8:00 am Harman Cole MD [Primary Care Provider] - (Arrive 15 minutes early with photo ID and insurance card. If you are not early, they will not see you. ) - Discharge Summary/Plan Comment DC Time >30 min.: No - Patient Data Vitals - Most Recent: Last Vital Signs Temp 97.8 F 11/25/18 04:00 Pulse 91 11/25/18 04:00 Resp 18 11/25/18 04:00 BP 129/76 11/25/18 04:00 Pulse Ox 96 11/25/18 04:00 Weight - Most Recent: 156.081 kg I&O - Last 24 hours: Intake & Output 11/24/18 11/25/18 11/25/18 22:59 06:59 14:59 Intake Total 1780 1985 Output Total 1000 700 Balance 780 1285 Lab Results - Last 24 hrs: Laboratory Results - last 24 hr 11/24/18 11/25/18 11/25/18 Range/Units 03:20 06:30 06:30 WBC 8.01 (4.0-11.0) K/uL RBC 3.85 L (4.50-5.90) M/uL Hgb 13.0 (13.0-17.0) g/dL Hct 38.7 (38.0-50.0) % MCV 100.5 H (80.0-98.0) fL MCH 33.8 H (27.0-32.0) pg MCHC 33.6 (31.0-37.0) g/dL RDW Std Deviation 51.1 (28.0-62.0) fl RDW Coeff of Venkatesh 14 (11.0-15.0) % Plt Count 191 (150-400) K/uL MPV 10.60 (7.40-12.00) fL Neut % (Auto) 59.7 (48.0-80.0) % Lymph % (Auto) 26.6 (16.0-40.0) % [place] % (Auto) 9.1 (0.0-15.0) % Eos % (Auto) 4.2 (0.0-7.0) % Baso % (Auto) 0.4 (0.0-1.5) % Neut # (Auto) 4.8 (1.4-5.7) K/uL Lymph # (Auto) 2.1 (0.6-2.4) K/uL [place] # (Auto) 0.7 (0.0-0.8) K/uL Eos # (Auto) 0.3 (0.0-0.7) K/uL Baso # (Auto) 0.0 (0.0-0.1) K/uL Nucleated RBC % 0.0 /100WBC Nucleated RBCs # 0 K/uL Sodium 140 (136-148) mmol/L Potassium 3.7 (3.5-5.1) mmol/L Chloride 104 (98-107) mmol/L Carbon Dioxide 27.0 (21.0-32.0) mmol/L BUN 9 (7.0-18.0) mg/dL Creatinine 0.9 (0.8-1.3) mg/dL Est Cr Clr Drug Dosing 141.99 mL/min Estimated GFR (MDRD) > 60.0 ml/min Glucose 119 H (74-106) mg/dL Calcium 8.5 (8.5-10.1) mg/dL Triglycerides 380 H (0-200) mg/dL Cholesterol 246 H (50-200) mg/dL LDL Cholesterol, Calc 128 (60-180) mg/dL VLDL Cholesterol 76 H (5-55) mg/dL HDL Cholesterol 42 (40-60) mg/dL Cholesterol/HDL Ratio 5.9 (3.3-6.0) Med Orders - Current: Current Medications Acetaminophen (Tylenol) 650 mg PO Q4H PRN PRN Reason: Pain/Fever Last Admin: 11/24/18 11:28 Dose: 650 mg Enoxaparin Sodium (Lovenox) 40 mg SUBCUT Q24H [facility] Last Admin: 11/24/18 08:25 Dose: 40 mg Sodium Chloride (Normal Saline) 1,000 mls @ 150 mls/hr IV ASDIRECTED [facility] Last Admin: 11/25/18 06:39 Dose: 150 mls/hr Pantoprazole Sodium 40 mg/ (Sodium Chloride) 10 mls @ 300 mls/hr IV Q24H [facility] Last Admin: 11/24/18 08:25 Dose: 300 mls/hr Metoprolol Succinate (Toprol Xl) 50 mg PO DAILY [facility] Last Admin: 11/24/18 08:24 Dose: 50 mg Ondansetron HCl (Zofran) 4 mg IVPUSH Q4H PRN PRN Reason: Nausea/Vomiting Last Admin: 11/24/18 11:28 Dose: 4 mg Quetiapine Fumarate (Seroquel) 100 mg PO BEDTIME [facility] Last Admin: 11/24/18 21:39 Dose: 100 mg Discontinued Medications Sodium Chloride (Normal Saline) 1,000 mls @ 999 mls/hr IV STAT ONE Stop: 11/24/18 04:10 Last Admin: 11/24/18 03:28 Dose: 999 mls/hr Iopamidol (Isovue Multipack-370 (76%)) 100 ml IVPUSH ONETIME STA Stop: 11/24/18 04:17 Last Admin: 11/24/18 04:17 Dose: 100 ml Ketorolac Tromethamine (Toradol) 30 mg IVPUSH ONETIME ONE Stop: 11/24/18 03:11 Last Admin: 11/24/18 03:31 Dose: 30 mg Morphine Sulfate (Morphine) 4 mg IVPUSH ONETIME ONE Stop: 11/24/18 04:46 Last Admin: 11/24/18 04:50 Dose: 4 mg Morphine Sulfate (Morphine) 1 mg IVPUSH Q4H PRN PRN Reason: Abdominal Pain Last Admin: 11/24/18 08:25 Dose: 1 mg Morphine Sulfate (Morphine) 2 mg IVPUSH Q4H PRN PRN Reason: Abdominal Pain Last Admin: 11/24/18 21:43 Dose: 2 mg Ondansetron HCl (Zofran) 8 mg IVPUSH ONETIME ONE Stop: 11/24/18 03:11 Last Admin: 11/24/18 03:29 Dose: 8 mg Pantoprazole Sodium (Protonix Iv) 80 mg IVPUSH .BOLUS ONE Stop: 11/24/18 03:11 Last Admin: 11/24/18 03:32 Dose: 80 mg Sodium Chloride (Normal Saline) 20 ml FLUSH NOW STA Stop: 11/24/18 03:16 Last Admin: 11/24/18 03:32 Dose: 20 ml <Artur Holley - Last Filed: 11/25/18 13:25> Discharge Summary - Hospital Course HPI Initial Comments: I have examined the patient independently of medical physics teacher, Dr. Parminder DO. I have discussed the case with her. I have reviewed and agree with the plan of care as outlined for the patient by her. Please see orders. - Patient Data Vitals - Most Recent: Last Vital Signs Temp 36.9 C 11/25/18 12:00 Pulse 85 11/25/18 12:00 Resp 20 11/25/18 12:00 BP 166/102 H 11/25/18 12:00 Pulse Ox 98 11/25/18 12:00 I&O - Last 24 hours: Intake & Output 11/24/18 11/25/18 11/25/18 22:59 06:59 14:59 Intake Total 1780 1985 120 Output Total 1000 700 Balance 780 1285 120 Lab Results - Last 24 hrs: Laboratory Results - last 24 hr 11/25/18 11/25/18 Range/Units 06:30 06:30 WBC 8.01 (4.0-11.0) K/uL RBC 3.85 L (4.50-5.90) M/uL Hgb 13.0 (13.0-17.0) g/dL Hct 38.7 (38.0-50.0) % MCV 100.5 H (80.0-98.0) fL MCH 33.8 H (27.0-32.0) pg MCHC 33.6 (31.0-37.0) g/dL RDW Std Deviation 51.1 (28.0-62.0) fl RDW Coeff of Venkatesh 14 (11.0-15.0) % Plt Count 191 (150-400) K/uL MPV 10.60 (7.40-12.00) fL Neut % (Auto) 59.7 (48.0-80.0) % Lymph % (Auto) 26.6 (16.0-40.0) % [place] % (Auto) 9.1 (0.0-15.0) % Eos % (Auto) 4.2 (0.0-7.0) % Baso % (Auto) 0.4 (0.0-1.5) % Neut # (Auto) 4.8 (1.4-5.7) K/uL Lymph # (Auto) 2.1 (0.6-2.4) K/uL [place] # (Auto) 0.7 (0.0-0.8) K/uL Eos # (Auto) 0.3 (0.0-0.7) K/uL Baso # (Auto) 0.0 (0.0-0.1) K/uL Nucleated RBC % 0.0 /100WBC Nucleated RBCs # 0 K/uL Sodium 140 (136-148) mmol/L Potassium 3.7 (3.5-5.1) mmol/L Chloride 104 (98-107) mmol/L Carbon Dioxide 27.0 (21.0-32.0) mmol/L BUN 9 (7.0-18.0) mg/dL Creatinine 0.9 (0.8-1.3) mg/dL Est Cr Clr Drug Dosing 141.99 mL/min Estimated GFR (MDRD) > 60.0 ml/min Glucose 119 H (74-106) mg/dL Calcium 8.5 (8.5-10.1) mg/dL Med Orders - Current: Current Medications Acetaminophen (Tylenol) 650 mg PO Q4H PRN PRN Reason: Pain/Fever Last Admin: 11/25/18 08:24 Dose: 650 mg Enoxaparin Sodium (Lovenox) 40 mg SUBCUT Q24H [facility] Last Admin: 11/25/18 08:23 Dose: 40 mg Sodium Chloride (Normal Saline) 1,000 mls @ 150 mls/hr IV ASDIRECTED [facility] Last Admin: 11/25/18 06:39 Dose: 150 mls/hr Pantoprazole Sodium 40 mg/ (Sodium Chloride) 10 mls @ 300 mls/hr IV Q24H [facility] Last Admin: 11/25/18 08:41 Dose: 300 mls/hr Metoprolol Succinate (Toprol Xl) 50 mg PO DAILY [facility] Last Admin: 11/25/18 08:23 Dose: 50 mg Ondansetron HCl (Zofran) 4 mg IVPUSH Q4H PRN PRN Reason: Nausea/Vomiting Last Admin: 11/24/18 11:28 Dose: 4 mg Quetiapine Fumarate (Seroquel) 100 mg PO BEDTIME [facility] Last Admin: 11/24/18 21:39 Dose: 100 mg Discontinued Medications Sodium Chloride (Normal Saline) 1,000 mls @ 999 mls/hr IV STAT ONE Stop: 11/24/18 04:10 Last Admin: 11/24/18 03:28 Dose: 999 mls/hr Iopamidol (Isovue Multipack-370 (76%)) 100 ml IVPUSH ONETIME STA Stop: 11/24/18 04:17 Last Admin: 11/24/18 04:17 Dose: 100 ml Ketorolac Tromethamine (Toradol) 30 mg IVPUSH ONETIME ONE Stop: 11/24/18 03:11 Last Admin: 11/24/18 03:31 Dose: 30 mg Morphine Sulfate (Morphine) 4 mg IVPUSH ONETIME ONE Stop: 11/24/18 04:46 Last Admin: 11/24/18 04:50 Dose: 4 mg Morphine Sulfate (Morphine) 1 mg IVPUSH Q4H PRN PRN Reason: Abdominal Pain Last Admin: 11/24/18 08:25 Dose: 1 mg Morphine Sulfate (Morphine) 2 mg IVPUSH Q4H PRN PRN Reason: Abdominal Pain Last Admin: 11/24/18 21:43 Dose: 2 mg Ondansetron HCl (Zofran) 8 mg IVPUSH ONETIME ONE Stop: 11/24/18 03:11 Last Admin: 11/24/18 03:29 Dose: 8 mg Pantoprazole Sodium (Protonix Iv) 80 mg IVPUSH .BOLUS ONE Stop: 11/24/18 03:11 Last Admin: 11/24/18 03:32 Dose: 80 mg Sodium Chloride (Normal Saline) 20 ml FLUSH NOW STA Stop: 11/24/18 03:16 Last Admin: 11/24/18 03:32 Dose: 20 ml
[2018-11-25] MEDS: Metoprolol Succinate 25 MG Tab.ER PO SCH (08:23)
[2018-11-25] MEDS: Enoxaparin 40 MG/0.4 ML Syringe SUBCUT SCH (08:23)
[2018-11-25] MEDS: Acetaminophen 325 MG Tab PO PRN (08:24)
[2018-11-25] MEDS: Pantoprazole 40 MG in Sodium Chloride 0.9% 10 ML IV SCH (08:41)
[2018-11-25 12:23] VITALS: BP 166/102
== END 2018-11-25 13:45 | disposition home or self-care (01) ==
LOC: MW.ED 03:03 → MW.MS 05:39
PROVIDERS: ADMIT Internal Medicine; ATTEND Internal Medicine
DX: K85.90 Acute pancreatitis without necrosis or infection, unspecified (principal); I10 Essential (primary) hypertension; E78.5 Hyperlipidemia, unspecified; F17.200 Nicotine dependence, unspecified, uncomplicated; G47.00 Insomnia, unspecified; Z87.11 Personal history of peptic ulcer disease
CPT/HCPCS: 36415; 74177; 74177-26; 80048; 80053; 80061; 81003; 83690; 85025; 96361; 96372; 96374; 96375; 96376; 99285-25; A9270-GY; C9113; G0378; J1650; J1885; J2270; J2405; J7040; J7050; Q9967

== ENCOUNTER 2019-08-31 04:15 | Inpatient (IN) | payer BC, OTHER ==
[2019-08-31] MEDS ORDERED: Ondansetron 4 MG/2 ML SDV IVPUSH ONE (04:27)
[2019-08-31] MEDS ORDERED: Sodium Chloride 0.9% 2.5 ML Syringe FLUSH PRN (04:27)
[2019-08-31] MEDS ORDERED: Famotidine 20 MG/2 ML SDV IVPUSH ONE (04:27)
[2019-08-31] MEDS ORDERED: Sodium Chloride 0.9% 1,000 ML IV ONE ×2 (04:27→08:37)
[2019-08-31] MEDS ORDERED: Sodium Chloride 0.9% 10 ML Syringe FLUSH PRN (04:27)
[2019-08-31] MEDS ORDERED: HYDROmorphone 1 MG/ML Syringe IVPUSH ONE ×3 (04:27→08:52)
--- NOTE | 2019-08-31 04:35 | EDM.PDOC ---
ED HPI GENERAL MEDICAL PROBLEM - General Chief Complaint: Abdominal Pain Stated Complaint: STOMACH PAIN Time Seen by Provider: 08/31/19 04:16 Source of Information: Reports: Patient History Limitations: Reports: No Limitations - History of Present Illness INITIAL COMMENTS - FREE TEXT/NARRATIVE: History of present illness: [Patient is 33-year-old male with a history of previous cholecystectomy who presents with epigastric pain starting about 8 hours prior to arrival. He states that yesterday he had some mild stomach upset, he did not think much of it, shortly after dinner around 8 PM he developed severe worsening pain. He tried to take a sleeping pill, quetiapine, but it did not really help with his symptoms. He also used Protonix which is 1 of his prescriptions but did not provide much relief either. Feels like his abdomen is more distended than usual as well. He is a daily alcohol drinker. Denies any significant cardiac or lung history. Feels nauseated but denies vomiting. Denies fever. pain is nonradiating and aching in nature.] Review of systems: As per history of present illness and below otherwise all systems reviewed and negative. Past medical history: As per history of present illness and as reviewed below otherwise noncontributory. Surgical history: As per history of present illness and as reviewed below otherwise noncontributory. Social history: No reported history of drug or alcohol abuse. Family history: As per history of present illness and as reviewed below otherwise noncontributory. Physical exam: General: Awake, alert, moderate distress, A&O X3. HEENT: Atraumatic, normocephalic, pupils reactive, negative for conjunctival pallor or scleral icterus, mucous membranes moist, throat clear, neck supple, nontender, trachea midline. Lungs: Clear to auscultation, breath sounds equal bilaterally, chest nontender. Heart: RRR, normal S1S2, no JVD. Abdomen: mildly distended, diffusely tender with guarding present, hypoactive bowel sounds. Pelvis: Stable nontender. Genitourinary: Deferred. Rectal: Deferred. Extremities: Atraumatic, no edema, Neurovascular unremarkable. Neuro: Motor and sensory grossly intact throughout. Exam nonfocal. Diagnostics: [] Therapeutics: [] Impression: [] Plan: [] Definitive disposition and diagnosis as appropriate pending reevaluation and review of above. Abdomen Pain Score (Numeric/FACES): 10 - Related Data Allergies Allergy/AdvReac Type Severity Reaction Status Date / Time No Known Allergies Allergy Verified 08/31/19 04:26 Home Meds: Home Meds Metoprolol Succinate [Toprol XL] 50 mg PO DAILY 12/25/17 [History] Pantoprazole Sodium [Protonix] 40 mg PO DAILY 12/25/17 [History] QUEtiapine Fumarate [Seroquel] 50 mg PO BEDTIME 12/25/17 [History] amLODIPine Besylate [Amlodipine Besylate] 10 mg PO DAILY 11/24/18 [History] Phentermine HCl [Adipex-P] 37.5 mg PO DAILY 08/31/19 [History] Past Medical History Cardiovascular History: Reports: Hypertension Gastrointestinal History: Reports: Pancreatitis Genitourinary History: Reports: Renal Calculus Psychiatric History: Reports: None Hematologic History: Reports: None Immunologic History: Reports: None Oncologic (Cancer) History: Reports: None - Infectious Disease History Infectious Disease History: Reports: Chicken Pox, MRSA - Past Surgical History HEENT Surgical History: Reports: Tonsillectomy, Other (See Below) Other HEENT Surgeries/Procedures: rhinoplasty GI Surgical History: Reports: Cholecystectomy Social & Family History - Family History Family Medical History: Noncontributory - Caffeine Use Caffeine Use: Reports: Coffee, Energy Drinks, Soda ED ROS GENERAL - Review of Systems Review Of Systems: Comprehensive ROS is negative, except as noted in HPI. ED EXAM, GI/ABD - Physical Exam Exam: See Below (see h and p) EKG INTERPRETATION EKG Date: 08/31/19 Time: 04:48 Rhythm: NSR Rate (Beats/Min): 92 P-Wave: Present QRS: Normal ST-T: Normal Course - Vital Signs Text/Narrative:: Patient with significantly elevated lipase. Consistent with his history of regular alcohol consumption and pancreatitis in the past. Received IV fluids and narcotics here in the ED to help with pain control. CT scan shows inflammation surrounding the duodenum along with the pancreas, so component of duodenitis along with pancreatitis. Received Protonix bolus here in the ED. will be admitted for pain control. Remained hemodynamically stable throughout his emergency department stay. Last Recorded V/S: Last Vital Signs Temp 35.6 C L 08/31/19 04:24 Pulse 96 08/31/19 05:44 Resp 22 H 08/31/19 05:44 BP 144/87 H 08/31/19 05:44 Pulse Ox 95 08/31/19 05:44 - Orders/Labs/Meds Orders: Active Orders 24 hr Category Date Time Status Admission Status [Patient Status] [ADT] Stat ADT 08/31/19 06:19 Ordered EKG 12 Lead [EKG Documentation Completion] [RC] STAT Care 08/31/19 04:29 Active Sodium Chloride 0.9% [Saline Flush] Med 08/31/19 04:27 Active 10 ml FLUSH ASDIRECTED PRN Sodium Chloride 0.9% [Saline Flush] Med 08/31/19 04:27 Active 2.5 ml FLUSH ASDIRECTED PRN Saline Lock Insert [OM.PC] Stat Oth 08/31/19 04:27 Ordered Medication Orders Sodium Chloride (Saline Flush) 10 ml FLUSH ASDIRECTED PRN PRN Reason: Keep Vein Open Last Admin: 08/31/19 04:43 Dose: 10 ml Sodium Chloride (Saline Flush) 2.5 ml FLUSH ASDIRECTED PRN PRN Reason: Keep Vein Open Last Admin: 08/31/19 04:43 Dose: 2.5 ml Labs: Laboratory Tests 08/31/19 08/31/19 08/31/19 Range/Units 04:32 04:40 04:40 WBC 16.54 H (4.0-11.0) K/uL RBC 4.81 (4.50-5.90) M/uL Hgb 16.1 (13.0-17.0) g/dL Hct 46.4 (38.0-50.0) % MCV 96.5 (80.0-98.0) fL MCH 33.5 H (27.0-32.0) pg MCHC 34.7 (31.0-37.0) g/dL RDW Std Deviation 54.3 (28.0-62.0) fl RDW Coeff of Venkatesh 16 H (11.0-15.0) % Plt Count 313 (150-400) K/uL MPV 10.80 (7.40-12.00) fL Neut % (Auto) 77.7 (48.0-80.0) % Lymph % (Auto) 13.7 L (16.0-40.0) % [place] % (Auto) 7.7 (0.0-15.0) % Eos % (Auto) 0.7 (0.0-7.0) % Baso % (Auto) 0.2 (0.0-1.5) % Neut # (Auto) 12.9 H (1.4-5.7) K/uL Lymph # (Auto) 2.3 (0.6-2.4) K/uL [place] # (Auto) 1.3 H (0.0-0.8) K/uL Eos # (Auto) 0.1 (0.0-0.7) K/uL Baso # (Auto) 0.0 (0.0-0.1) K/uL Nucleated RBC % 0.0 /100WBC Nucleated RBCs # 0 K/uL Sodium 137 (136-148) mmol/L Potassium 3.3 L (3.5-5.1) mmol/L Chloride 102 (98-107) mmol/L Carbon Dioxide 24.4 (21.0-32.0) mmol/L BUN 14 (7.0-18.0) mg/dL Creatinine 1.1 (0.8-1.3) mg/dL Est Cr Clr Drug Dosing 115.08 mL/min Estimated GFR (MDRD) > 60.0 ml/min Glucose 166 H (74-106) mg/dL Calcium 8.7 (8.5-10.1) mg/dL Total Bilirubin 0.9 (0.2-1.0) mg/dL AST 38 H (15-37) IU/L ALT 83 H (14-63) IU/L Alkaline Phosphatase 81 (46-116) U/L Troponin I < 0.050 (0.000-0.056) ng/mL Total Protein 7.2 (6.4-8.2) g/dL Albumin 3.9 (3.4-5.0) g/dL Globulin 3.3 (2.6-4.0) g/dL Albumin/Globulin Ratio 1.2 (0.9-1.6) Lipase 5111 H (73-393) U/L Urine Color DARK YELLOW Urine Appearance SLT CLOUDY Urine pH 6.0 (5.0-8.0) Ur Specific Merrill >= 1.030 (1.001-1.035) Urine Protein 100 H (NEGATIVE) mg/dL Urine Glucose (UA) NEGATIVE (NEGATIVE) mg/dL Urine Ketones TRACE H (NEGATIVE) mg/dL Urine Occult Blood NEGATIVE (NEGATIVE) Urine Nitrite POSITIVE H (NEGATIVE) Urine Bilirubin MODERATE H (NEGATIVE) Urine Ictotest NEGATIVE Urine Urobilinogen 1.0 (<2.0) EU/dL Ur Leukocyte Esterase NEGATIVE (NEGATIVE) Urine RBC NONE SEEN (0-2/HPF) Urine WBC 0-3 (0-5/HPF) Ur Epithelial Cells RARE (NONE-FEW) Urine Bacteria 2+ H (NEGATIVE) Urine Mucus MODERATE (NONE-MOD) Meds: Medications Generic Name Dose Route Start Last Admin Trade Name Freq PRN Reason Stop Dose Admin Sodium Chloride 10 ml 08/31/19 04:27 08/31/19 04:43 Saline Flush FLUSH 10 ml ASDIRECTED PRN Administration Keep Vein Open Sodium Chloride 2.5 ml 08/31/19 04:27 08/31/19 04:43 Saline Flush FLUSH 2.5 ml ASDIRECTED PRN Administration Keep Vein Open Discontinued Medications Generic Name Dose Route Start Last Admin Trade Name Freq PRN Reason Stop Dose Admin Famotidine 20 mg 08/31/19 04:27 08/31/19 04:42 Pepcid IVPUSH 08/31/19 04:28 20 mg ONETIME ONE Administration Hydromorphone HCl 1 mg 08/31/19 04:27 08/31/19 04:40 Dilaudid IVPUSH 08/31/19 04:28 1 mg ONETIME ONE Administration Hydromorphone HCl 1 mg 08/31/19 05:35 08/31/19 05:42 Dilaudid IVPUSH 08/31/19 05:36 1 mg ONETIME ONE Administration Sodium Chloride 1,000 mls @ 1,000 mls/hr 08/31/19 04:27 08/31/19 04:39 Normal Saline IV 08/31/19 05:26 1,000 mls/hr .Bolus ONE Administration Pantoprazole Sodium 40 mg/ 10 mls @ 300 mls/hr 08/31/19 06:15 Sodium Chloride IV 08/31/19 06:16 NOW ONE Iopamidol 100 ml 08/31/19 05:45 08/31/19 05:46 Isovue Multipack-370 (76%) IVPUSH 08/31/19 05:46 100 ml ONETIME STA Administration Ondansetron HCl 4 mg 08/31/19 04:27 08/31/19 04:39 Zofran IVPUSH 08/31/19 04:28 4 mg ONETIME ONE Administration Departure - Departure Time of Disposition: 06:21 Disposition: Admitted As Inpatient 64 Condition: Good Clinical Impression: Duodenitis, Pancreatitis - Discharge Information Referrals: Harman Cole MD [Primary Care Provider] - Forms: ED Department Discharge Sepsis Event Note (ED) - Evaluation Sepsis Screening Result: No Definite Risk - Focused Exam Vital Signs: Vital Signs Temp Pulse Resp BP Pulse Ox 08/31/19 05:44 96 22 H 144/87 H 95 08/31/19 04:24 35.6 C L 102 H 22 H 141/100 H 97 - My Orders Last 24 Hours: My Active Orders 08/31/19 04:27 Sodium Chloride 0.9% [Saline Flush] 10 ml FLUSH ASDIRECTED PRN Sodium Chloride 0.9% [Saline Flush] 2.5 ml FLUSH ASDIRECTED PRN Saline Lock Insert [OM.PC] Stat 08/31/19 04:29 EKG 12 Lead [EKG Documentation Completion] [RC] STAT 08/31/19 06:19 Admission Status [Patient Status] [ADT] Stat - Assessment/Plan Last 24 Hours: My Active Orders 08/31/19 04:27 Sodium Chloride 0.9% [Saline Flush] 10 ml FLUSH ASDIRECTED PRN Sodium Chloride 0.9% [Saline Flush] 2.5 ml FLUSH ASDIRECTED PRN Saline Lock Insert [OM.PC] Stat 08/31/19 04:29 EKG 12 Lead [EKG Documentation Completion] [RC] STAT 08/31/19 06:19 Admission Status [Patient Status] [ADT] Stat
[2019-08-31 05:15] LABS: BLOOD UREA NITROGEN,BUN 14 mg/dL (7.0-18.0); CARBON DIOXIDE,CO2 24.4 mmol/L (21.0-32.0); CHLORIDE,CL 102 mmol/L (98-107); GLUCOSE RANDOM 166 mg/dL (74-106); POTASSIUM,K 3.3 mmol/L (3.5-5.1); SODIUM,NA 137 mmol/L (136-148)
--- NOTE | 2019-08-31 05:24 | CR ---
HISTORY: Epigastric pain. Rule out free air. COMPARISON: None available FINDINGS: A portable erect AP view of the chest was obtained at 0444 hours. The lungs are clear. No focal or diffuse infiltrates are present. The heart is normal in size. The mediastinum is normal in appearance. The osseous structures are normal in appearance for the patient`s age. There is no sign of any free air under the hemidiaphragms. IMPRESSION: Normal portable chest single view. No sign of free intra-abdominal air. Dictated by Tanmay Romeo MD @ Aug 31 2019 5:22AM Signed by Dr. Tanmay Romeo @ Aug 31 2019 5:23AM
[2019-08-31 05:31] LABS: LIPASE 5111 U/L (73-393)
[2019-08-31] MEDS ORDERED: Iopamidol 755 MG/ML 500 ML Multipack Bottle IVPUSH STA (05:45)
--- NOTE | 2019-08-31 06:13 | CT ---
INDICATION: Epigastric pain COMPARISON: None TECHNIQUE: CT examination of the abdomen and pelvis was performed following the uneventful intravenous administration of 100 cc of Isovue 3 7. Thin section axial images were obtained from the lung bases through the pubic symphysis. Oral contrast was not administered. Please note that all CT scans at this facility use dose modulation, iterative reconstruction, and/or weight-based dosing when appropriate to reduce radiation dose to as low as reasonably achievable. FINDINGS: LUNG BASES: The lung bases as visualized appear normal.The heart size is normal at the lung bases. LIVER/BILIARY SYSTEM:Hepatic steatosis. No focal mass or biliary ductal dilatation. Status post cholecystectomythe gall bladder appears normal. ADRENALS: Normal KIDNEYS, URETERS and BLADDER:The kidneys appear normal. No visible mass, calculus or hydronephrosis. The ureters and bladder as visualized appear normal. SPLEEN:Normal appearance. PANCREAS: There is inflammation in the lesser sac centered at the pancreaticoduodenal groove. This is a so-called groove pancreatitis pattern. This could be due to inflammation of the pancreatic head at the pancreaticoduodenal groove or an inflammatory, much less likely malignant process of the pancreatic head or duodenum. The epicenter seems to be the duodenum rather than the pancreas and therefore I favor duodenal disease, most likely peptic ulcer disease. There is no leoncio collection in there is no free air. Clinical correlation and follow-up advised RETROPERITONEUM and MESENTERY: There is no mass, adenopathy or aortic aneurysm. GASTROINTESTINAL SYSTEM: There is no evidence of diverticulitis, colitis, mechanical obstruction, or appendicitis. The small bowel as visualized appears normal.Diverticulosis, specially sigmoid PELVIS: No mass, adenopathy or free fluid. OSSEOUS STRUCTURES and ABDOMINAL WALL: There is an age-appropriate appearance of the osseous structures.No significant abdominal wall defect. OTHER: No free air. 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 The differential considerations are discussed above but primarily R pancreatitis at the pancreaticoduodenal groove or duodenal inflammatory disease. The pattern in this patient favors duodenal inflammatory disease Please note that all CT scans at this facility use dose modulation, iterative reconstruction, and/or weight-based dosing when appropriate to reduce radiation dose to as low as reasonably achievable. Dictated by Soto Otto MD @ Aug 31 2019 6:03AM Signed by Dr. Soto Otto @ Aug 31 2019 6:11AM
[2019-08-31] MEDS ORDERED: Pantoprazole 40 MG in Sodium Chloride 0.9% 10 ML IV ONE (06:15)
[2019-08-31] MEDS ORDERED: Morphine 2 MG/ML SYRINGE IVPUSH PRN (07:13)
[2019-08-31] MEDS ORDERED: Lactated Ringers 1,000 ML IV SCH (07:15)
[2019-08-31] MEDS ORDERED: LORazepam 2 MG/ML SDV IVPUSH ONE (07:40)
--- NOTE | 2019-08-31 07:41 | PCM.HP.2 ---
<Yumi Douglas - Last Filed: 08/31/19 10:59> H&P History of Present Illness - General Date of Service: 08/31/19 Admit Problem/Dx: Admission Diagnosis/Problem Admission Diagnosis/Problem Pancreatitis Source of Information: Patient History Limitations: Reports: No Limitations - History of Present Illness Initial Comments - Free Text/Narative: Patient is a 33-year-old male with significant past medical history of morbid obesity, hypertension, peptic ulcer disease, daily alcohol use; presenting today with 2 days of increasing abdominal pain and tenderness with a bloating sensation. Denies any nausea no vomiting but does endorse drinking alcohol daily as part of his routine; 2 mixed drinks with 1 beer and smokes 1 pack/day. Denies any fevers, chills, bodies, dysuria, polyuria, chest pain, shortness of breath. Mentions having a similar episode with somewhat lesser density at 1 year prior. ED course: Chest x-ray negative. CT abdomen pelvis concerning for pancreatitis versus and or duodenitis. Elevated lipase. Vitals stable. Given 1 dose of Dilaudid with fluid. Bedside: Endorsing pain. Mentions that her Dilaudid worked however did not work for very short period of time. No other changes were added complaints or elements to current clinical story. Abdomen Pain Score (Numeric/FACES): 10 - Related Data Allergies/Adverse Reactions: Allergies Allergy/AdvReac Type Severity Reaction Status Date / Time No Known Allergies Allergy Verified 08/31/19 07:41 Home Medications: Home Meds Metoprolol Succinate [Toprol XL] 50 mg PO DAILY 12/25/17 [History] Pantoprazole Sodium [Protonix] 40 mg PO DAILY 12/25/17 [History] QUEtiapine Fumarate [Seroquel] 50 - 100 mg PO BEDTIME 12/25/17 [History] amLODIPine Besylate [Amlodipine Besylate] 10 mg PO DAILY 11/24/18 [History] Phentermine HCl [Adipex-P] 37.5 mg PO DAILY 08/31/19 [History] Nicotine [Habitrol] 14 mg TRDERM DAILY patch 09/03/19 [Rx] levoFLOXacin [Levaquin] 750 mg PO DAILY 5 Days #5 tab 09/03/19 [Rx] oxyCODONE 5 mg PO DAILY PRN 4 Days #4 tab 09/03/19 [Rx] Past Medical History Cardiovascular History: Reports: Hypertension Respiratory History: Reports: None Gastrointestinal History: Reports: Pancreatitis Genitourinary History: Reports: Renal Calculus Musculoskeletal History: Reports: None Neurological History: Reports: None Psychiatric History: Reports: None Endocrine/Metabolic History: Reports: None Hematologic History: Reports: None Immunologic History: Reports: None Oncologic (Cancer) History: Reports: None Dermatologic History: Reports: None - Infectious Disease History Infectious Disease History: Reports: Chicken Pox, MRSA - Past Surgical History HEENT Surgical History: Reports: Tonsillectomy, Other (See Below) Other HEENT Surgeries/Procedures: rhinoplasty GI Surgical History: Reports: Cholecystectomy Social & Family History - Family History Family Medical History: Noncontributory - Tobacco Use Smoking Status *Q: Current Every Day Smoker Years of Tobacco use: 7 Packs/Tins Daily: 1 - Caffeine Use Caffeine Use: Reports: Coffee, Energy Drinks, Soda - Recreational Drug Use Recreational Drug Use: No H&P Review of Systems - Review of Systems: Review Of Systems: See Below General: Denies: Fever, Chills, Weakness, Fatigue HEENT: Reports: No Symptoms Pulmonary: Reports: No Symptoms Cardiovascular: Reports: No Symptoms Gastrointestinal: Reports: Abdominal Pain, Decreased Appetite, Nausea. Denies: Constipation, Diarrhea, Vomiting Genitourinary: Reports: No Symptoms. Denies: Dysuria, Frequency, Burning Musculoskeletal: Reports: No Symptoms Skin: Reports: No Symptoms Psychiatric: Reports: No Symptoms Neurological: Reports: No Symptoms Exam - Exam Exam: See Below - Vital Signs Vital Signs: Last Vital Signs Temp 96.1 F L 08/31/19 04:24 Pulse 98 08/31/19 06:24 Resp 18 08/31/19 06:24 BP 127/91 H 08/31/19 06:24 Pulse Ox 94 L 08/31/19 06:24 Weight: 164.6 kg - Exam Quality Assessment: No: Supplemental Oxygen General: Alert, Oriented, Moderate Distress HEENT: EOMI, Posterior Pharynx Clear Neck: Supple, Trachea Midline Lungs: Clear to Auscultation, Normal Respiratory Effort Cardiovascular: Regular Rate, Regular Rhythm GI/Abdominal Exam: Other (DIffuse tenderness; hyperactive BS; obese; no rebound tenderness. ) Back Exam: Full Range of Motion. No: CVA Tenderness (L), CVA Tenderness (R) Extremities: Normal Range of Motion Skin: Dry, Intact Neurological: Cranial Nerves Intact Neuro Extensive - Mental Status: Alert, Oriented x3, Normal Cognition Psychiatric: Alert, Normal Affect - Patient Data Lab Results Last 24 hrs: Laboratory Results - last 24 hr 08/31/19 08/31/19 08/31/19 Range/Units 04:32 04:40 04:40 WBC 16.54 H (4.0-11.0) K/uL RBC 4.81 (4.50-5.90) M/uL Hgb 16.1 (13.0-17.0) g/dL Hct 46.4 (38.0-50.0) % MCV 96.5 (80.0-98.0) fL MCH 33.5 H (27.0-32.0) pg MCHC 34.7 (31.0-37.0) g/dL RDW Std Deviation 54.3 (28.0-62.0) fl RDW Coeff of Venkatesh 16 H (11.0-15.0) % Plt Count 313 (150-400) K/uL MPV 10.80 (7.40-12.00) fL Neut % (Auto) 77.7 (48.0-80.0) % Lymph % (Auto) 13.7 L (16.0-40.0) % [place] % (Auto) 7.7 (0.0-15.0) % Eos % (Auto) 0.7 (0.0-7.0) % Baso % (Auto) 0.2 (0.0-1.5) % Neut # (Auto) 12.9 H (1.4-5.7) K/uL Lymph # (Auto) 2.3 (0.6-2.4) K/uL [place] # (Auto) 1.3 H (0.0-0.8) K/uL Eos # (Auto) 0.1 (0.0-0.7) K/uL Baso # (Auto) 0.0 (0.0-0.1) K/uL Nucleated RBC % 0.0 /100WBC Nucleated RBCs # 0 K/uL Sodium 137 (136-148) mmol/L Potassium 3.3 L (3.5-5.1) mmol/L Chloride 102 (98-107) mmol/L Carbon Dioxide 24.4 (21.0-32.0) mmol/L BUN 14 (7.0-18.0) mg/dL Creatinine 1.1 (0.8-1.3) mg/dL Est Cr Clr Drug Dosing 115.08 mL/min Estimated GFR (MDRD) > 60.0 ml/min Glucose 166 H (74-106) mg/dL Calcium 8.7 (8.5-10.1) mg/dL Total Bilirubin 0.9 (0.2-1.0) mg/dL AST 38 H (15-37) IU/L ALT 83 H (14-63) IU/L Alkaline Phosphatase 81 (46-116) U/L Troponin I < 0.050 (0.000-0.056) ng/mL Total Protein 7.2 (6.4-8.2) g/dL Albumin 3.9 (3.4-5.0) g/dL Globulin 3.3 (2.6-4.0) g/dL Albumin/Globulin Ratio 1.2 (0.9-1.6) Lipase 5111 H (73-393) U/L Urine Color DARK YELLOW Urine Appearance SLT CLOUDY Urine pH 6.0 (5.0-8.0) Ur Specific Early >= 1.030 (1.001-1.035) Urine Protein 100 H (NEGATIVE) mg/dL Urine Glucose (UA) NEGATIVE (NEGATIVE) mg/dL Urine Ketones TRACE H (NEGATIVE) mg/dL Urine Occult Blood NEGATIVE (NEGATIVE) Urine Nitrite POSITIVE H (NEGATIVE) Urine Bilirubin MODERATE H (NEGATIVE) Urine Ictotest NEGATIVE Urine Urobilinogen 1.0 (<2.0) EU/dL Ur Leukocyte Esterase NEGATIVE (NEGATIVE) Urine RBC NONE SEEN (0-2/HPF) Urine WBC 0-3 (0-5/HPF) Ur Epithelial Cells RARE (NONE-FEW) Urine Bacteria 2+ H (NEGATIVE) Urine Mucus MODERATE (NONE-MOD) Result Diagrams: 08/31/19 04:40 08/31/19 04:40 Sepsis Event Note - Evaluation Sepsis Screening Result: No Definite Risk - Focused Exam Vital Signs: Vital Signs Temp Pulse Resp BP Pulse Ox 08/31/19 06:24 98 18 127/91 H 94 L 08/31/19 05:44 96 22 H 144/87 H 95 08/31/19 04:24 96.1 F L 102 H 22 H 141/100 H 97 Date Exam was Performed: 08/31/19 Time Exam was Performed: 10:59 Problem List Initiated/Reviewed/Updated: Yes Orders Last 24hrs: Active Orders 24 hr Category Date Time Status Admission Status [Patient Status] [ADT] Stat ADT 08/31/19 06:19 Active Ambulate [RC] ASDIRECTED Care 08/31/19 07:12 Active Antiembolic Devices [RC] PER UNIT ROUTINE Care 08/31/19 07:14 Active CIWAA Assessment [RC] Q4H Care 08/31/19 07:14 Active EKG 12 Lead [EKG Documentation Completion] [RC] STAT Care 08/31/19 04:29 Active Vital Signs [RC] Q4H Care 08/31/19 07:11 Active NPO [Nothing Per Oral Diet] [DIET] Diet 08/31/19 Lunch Active MAGNESIUM [CHEM] Routine Lab 08/31/19 07:40 Ordered LORazepam [Ativan] Med 08/31/19 07:40 Once See Protocol IVPUSH ONETIME ONE Lactated Ringers [Ringers, Lactated] 1,000 ml Med 08/31/19 07:15 Active IV ASDIRECTED Morphine Med 08/31/19 07:13 Active 2 mg IVPUSH Q4H PRN Sodium Chloride 0.9% [Saline Flush] Med 08/31/19 04:27 Active 10 ml FLUSH ASDIRECTED PRN Sodium Chloride 0.9% [Saline Flush] Med 08/31/19 04:27 Active 2.5 ml FLUSH ASDIRECTED PRN Saline Lock Insert [OM.PC] Stat Oth 08/31/19 04:27 Ordered Sequential Compression Device [OM.PC] Routine Oth 08/31/19 07:14 Ordered Medication Orders Lactated Ringer's (Ringers, Lactated) 1,000 mls @ 125 mls/hr IV ASDIRECTED BISI Last Admin: 08/31/19 07:30 Dose: 125 mls/hr Morphine Sulfate (Morphine) 2 mg IVPUSH Q4H PRN PRN Reason: Pain Last Admin: 08/31/19 07:30 Dose: 2 mg Sodium Chloride (Saline Flush) 10 ml FLUSH ASDIRECTED PRN PRN Reason: Keep Vein Open Last Admin: 08/31/19 04:43 Dose: 10 ml Sodium Chloride (Saline Flush) 2.5 ml FLUSH ASDIRECTED PRN PRN Reason: Keep Vein Open Last Admin: 08/31/19 04:43 Dose: 2.5 ml Assessment/Plan Comment:: Assessment acute epigastric pain in the setting of pancreatitis versus duodenitis:elevated Lipase Daily alcohol use Tobacco abuse 1 pack/day History of peptic ulcer disease Past medical history: Hypertension, morbid obesity, peptic ulcer disease, 1 PPD of tobacco/abuse Hypokalemia Hypomagnesemia Transaminitis UTI Plan Admit to observation. Full code. GI prophylaxis IV PPI 40 mg twice today; daily starting tomorrow. DVT prophylaxis Heparin 5000 twice daily. Vitals per routine. Activity up ad jennifer. Diet; n.p.o. plus sips and chips. 1. Acute pancreatitis versus acute duodenitis; as seen on CT abdomen pelvis; we will continue to manage patient with pain control; currently hemodynamically stable; IV PPI twice daily today+ plus n.p.o. continue to manage pain with Dilaudid q4hrs for now. We will order a stool study for H. pylori and occult blood 2. Daily alcohol use; 2 mixed drinks +1 beer nightly; CIWA protocol with Ativan per protocol. Continue to monitor. Replete magnesium; will check phosphorus levels. 3. Hypertension; continue home medications 4. Zofran every 4 hours as needed vomiting/nausea. 14mcg Nicotine patch 5. UTI: suprapubic tenderness but no polyuria/dysuria; 1 gram rocephin daily ; will adjust w. cultures <Say Landa - Last Filed: 09/06/19 14:53> H&P History of Present Illness - General Admit Problem/Dx: Admission Diagnosis/Problem Admission Diagnosis/Problem Pancreatitis Exam - Vital Signs Vital Signs: Last Vital Signs Temp 36.7 C 09/03/19 07:25 Pulse 106 H 09/03/19 08:22 Resp 16 09/03/19 07:25 BP 137/84 09/03/19 08:22 Pulse Ox 93 L 09/03/19 07:25 - Patient Data Result Diagrams: 09/03/19 05:50 09/03/19 05:50 Assessment/Plan Comment:: I performed a history and physical exam of the patient and discussed management with resident. I have reviewed the residents note and agree with documented findings and plan unless otherwise specified in my note.
[2019-08-31] MEDS ORDERED: LORazepam 2 MG/ML SDV IVPUSH PRN (07:54)
[2019-08-31] MEDS ORDERED: Magnesium Sulfate/Water 2 GM in Premix Bag 1 BAG IV ONE (08:19)
[2019-08-31] MEDS ORDERED: Heparin Sodium 5,000 Units/ML Vial IVPUSH SCH (08:30)
[2019-08-31] MEDS ORDERED: Ondansetron 4 MG/2 ML SDV IVPUSH PRN (08:36)
[2019-08-31] MEDS ORDERED: Potassium Chloride 20 MEQ Tab.ER PO ONE (08:39)
[2019-08-31] MEDS: Pantoprazole 40 MG in Sodium Chloride 0.9% 10 ML IV SCH ×2 (08:47→21:22)
[2019-08-31] MEDS ORDERED: cefTRIAXone 1 GM in Premix Bag 1 BAG IV ONE (08:55)
[2019-08-31] MEDS ORDERED: Folic Acid 1 MG Tab PO SCH (09:00)
[2019-08-31] MEDS: Metoprolol Succinate 50 MG Tab.ER PO SCH (09:15)
[2019-08-31] MEDS: amLODIPine 5 MG Tab PO SCH (09:15)
[2019-08-31] MEDS: Nicotine 14 MG/24 Hr Patch TRDERM SCH (09:43)
[2019-08-31] MEDS ORDERED: HYDROmorphone 2 MG/ML Syringe IVPUSH PRN (10:00)
[2019-08-31] MEDS ORDERED: Folic Acid 50 MG/10 ML MDV IV SCH (10:15)
[2019-08-31] MEDS: Sodium Chloride 0.9% 1,000 ML IV SCH ×3 (10:38→21:19)
[2019-08-31] MEDS: Thiamine 100 MG in Sodium Chloride 0.9% 100 ML IV SCH (11:16)
[2019-08-31] MEDS: HYDROmorphone 1 MG/ML Syringe IVPUSH PRN ×3 (14:06→22:26)
[2019-08-31 17:56] LABS: HEMOGLOBIN A1C 5.8 % (4.5-6.2)
[2019-08-31] MEDS ORDERED: Ketorolac 30 MG/ML SDV IVPUSH PRN (17:59)
[2019-08-31] MEDS: Heparin Sodium 5,000 Units/ML Vial SUBCUT SCH (21:24)
[2019-08-31] MEDS ORDERED: QUEtiapine 100 MG Tab PO SCH (23:15)
[2019-09-01] MEDS: Sodium Chloride 0.9% 1,000 ML IV SCH ×5 (01:30→21:58)
[2019-09-01] MEDS: HYDROmorphone 1 MG/ML Syringe IVPUSH PRN ×5 (03:16→21:56)
[2019-09-01 06:58] LABS: BLOOD UREA NITROGEN,BUN 11 mg/dL (7.0-18.0); CARBON DIOXIDE,CO2 25.6 mmol/L (21.0-32.0); CHLORIDE,CL 104 mmol/L (98-107); GLUCOSE RANDOM 124 mg/dL (74-106); POTASSIUM,K 3.9 mmol/L (3.5-5.1); SODIUM,NA 140 mmol/L (136-148)
[2019-09-01] MEDS: Pantoprazole 40 MG in Sodium Chloride 0.9% 10 ML IV SCH (08:37)
[2019-09-01] MEDS: Heparin Sodium 5,000 Units/ML Vial SUBCUT SCH ×2 (08:41→20:29)
[2019-09-01] MEDS: Metoprolol Succinate 50 MG Tab.ER PO SCH (08:42)
[2019-09-01] MEDS: Folic Acid 50 MG/10 ML MDV SUBCUT SCH (08:42)
[2019-09-01] MEDS: amLODIPine 5 MG Tab PO SCH (08:44)
[2019-09-01] MEDS: Nicotine 14 MG/24 Hr Patch TRDERM SCH (08:45)
[2019-09-01] MEDS: Thiamine 100 MG in Sodium Chloride 0.9% 100 ML IV SCH (09:12)
--- NOTE | 2019-09-01 11:27 | PCM.PN ---
- General Info Date of Service: 09/01/19 Subjective Update: Pain better than yesterday; but worsens still w. movement - Review of Systems General: Denies: Fever, Weakness HEENT: Reports: No Symptoms Pulmonary: Reports: No Symptoms Cardiovascular: Reports: No Symptoms Gastrointestinal: Reports: Abdominal Pain, Constipation, Nausea. Denies: Diarrhea, Vomiting Genitourinary: Reports: No Symptoms. Denies: Flank Pain Musculoskeletal: Reports: No Symptoms Skin: Reports: No Symptoms Neurological: Reports: No Symptoms Psychiatric: Reports: No Symptoms - Patient Data Vitals - Most Recent: Last Vital Signs Temp 97.2 F 09/01/19 08:00 Pulse 96 09/01/19 08:42 Resp 19 09/01/19 08:00 BP 138/82 09/01/19 08:44 Pulse Ox 93 L 09/01/19 08:00 Weight - Most Recent: 164.6 kg I&O - Last 24 Hours: Intake & Output 08/31/19 09/01/19 09/01/19 22:59 06:59 14:59 Intake Total 1358 2058 Output Total 800 550 Balance 558 1508 Lab Results Last 24 Hours: Laboratory Results - last 24 hr 08/31/19 09/01/19 09/01/19 Range/Units 04:40 05:45 05:45 WBC 11.16 H (4.0-11.0) K/uL RBC 4.18 L (4.50-5.90) M/uL Hgb 14.2 (13.0-17.0) g/dL Hct 42.3 (38.0-50.0) % MCV 101.2 H (80.0-98.0) fL MCH 34.0 H (27.0-32.0) pg MCHC 33.6 (31.0-37.0) g/dL RDW Std Deviation 57.6 (28.0-62.0) fl RDW Coeff of Venkatesh 16 H (11.0-15.0) % Plt Count 233 (150-400) K/uL MPV 11.10 (7.40-12.00) fL Neut % (Auto) 73.4 (48.0-80.0) % Lymph % (Auto) 13.9 L (16.0-40.0) % [place] % (Auto) 10.2 (0.0-15.0) % Eos % (Auto) 2.3 (0.0-7.0) % Baso % (Auto) 0.2 (0.0-1.5) % Neut # (Auto) 8.2 H (1.4-5.7) K/uL Lymph # (Auto) 1.6 (0.6-2.4) K/uL [place] # (Auto) 1.1 H (0.0-0.8) K/uL Eos # (Auto) 0.3 (0.0-0.7) K/uL Baso # (Auto) 0.0 (0.0-0.1) K/uL Sodium 140 (136-148) mmol/L Potassium 3.9 (3.5-5.1) mmol/L Chloride 104 (98-107) mmol/L Carbon Dioxide 25.6 (21.0-32.0) mmol/L BUN 11 (7.0-18.0) mg/dL Creatinine 0.8 (0.8-1.3) mg/dL Est Cr Clr Drug Dosing 158.23 mL/min Estimated GFR (MDRD) > 60.0 ml/min Glucose 124 H (74-106) mg/dL Hemoglobin A1c 5.8 (4.5-6.2) % Calcium 8.4 L (8.5-10.1) mg/dL Magnesium 1.9 (1.8-2.4) mg/dL Total Bilirubin 0.9 (0.2-1.0) mg/dL AST 22 (15-37) IU/L ALT 48 (14-63) IU/L Alkaline Phosphatase 63 (46-116) U/L Total Protein 6.0 L (6.4-8.2) g/dL Albumin 3.2 L (3.4-5.0) g/dL Globulin 2.8 (2.6-4.0) g/dL Albumin/Globulin Ratio 1.1 (0.9-1.6) Triglycerides (0-200) mg/dL Cholesterol (50-200) mg/dL LDL Cholesterol, Calc (60-180) mg/dL VLDL Cholesterol (5-55) mg/dL HDL Cholesterol (40-60) mg/dL Cholesterol/HDL Ratio (3.3-6.0) 06/11/20 Range/Units 05:45 WBC (4.0-11.0) K/uL RBC (4.50-5.90) M/uL Hgb (13.0-17.0) g/dL Hct (38.0-50.0) % MCV (80.0-98.0) fL MCH (27.0-32.0) pg MCHC (31.0-37.0) g/dL RDW Std Deviation (28.0-62.0) fl RDW Coeff of Venkatesh (11.0-15.0) % Plt Count (150-400) K/uL MPV (7.40-12.00) fL Neut % (Auto) (48.0-80.0) % Lymph % (Auto) (16.0-40.0) % [place] % (Auto) (0.0-15.0) % Eos % (Auto) (0.0-7.0) % Baso % (Auto) (0.0-1.5) % Neut # (Auto) (1.4-5.7) K/uL Lymph # (Auto) (0.6-2.4) K/uL [place] # (Auto) (0.0-0.8) K/uL Eos # (Auto) (0.0-0.7) K/uL Baso # (Auto) (0.0-0.1) K/uL Sodium (136-148) mmol/L Potassium (3.5-5.1) mmol/L Chloride (98-107) mmol/L Carbon Dioxide (21.0-32.0) mmol/L BUN (7.0-18.0) mg/dL Creatinine (0.8-1.3) mg/dL Est Cr Clr Drug Dosing mL/min Estimated GFR (MDRD) ml/min Glucose (74-106) mg/dL Hemoglobin A1c (4.5-6.2) % Calcium (8.5-10.1) mg/dL Magnesium (1.8-2.4) mg/dL Total Bilirubin (0.2-1.0) mg/dL AST (15-37) IU/L ALT (14-63) IU/L Alkaline Phosphatase (46-116) U/L Total Protein (6.4-8.2) g/dL Albumin (3.4-5.0) g/dL Globulin (2.6-4.0) g/dL Albumin/Globulin Ratio (0.9-1.6) Triglycerides 159 (0-200) mg/dL Cholesterol 172 (50-200) mg/dL LDL Cholesterol, Calc 101 (60-180) mg/dL VLDL Cholesterol 31 (5-55) mg/dL HDL Cholesterol 39 L (40-60) mg/dL Cholesterol/HDL Ratio 4.4 (3.3-6.0) Med Orders - Current: Current Medications Amlodipine Besylate (Norvasc) 10 mg PO DAILY [facility] Last Admin: 09/01/19 08:44 Dose: 10 mg Folic Acid (Folic Acid) 1 mg SUBCUT DAILY [facility] Last Admin: 09/01/19 08:42 Dose: 1 mg Heparin Sodium (Porcine) (Heparin Sodium) 5,000 units SUBCUT Q12H [facility] Last Admin: 09/01/19 08:41 Dose: 5,000 units Hydromorphone HCl (Dilaudid) 1 mg IVPUSH Q4H PRN PRN Reason: Pain Last Admin: 09/01/19 09:08 Dose: 1 mg Sodium Chloride (Normal Saline) 1,000 mls @ 200 mls/hr IV Q5H [facility] Last Admin: 09/01/19 06:01 Dose: 200 mls/hr Thiamine HCl 100 mg/ Sodium (Chloride) 101 mls @ 202 mls/hr IV DAILY [facility] Last Admin: 09/01/19 09:12 Dose: 202 mls/hr Pantoprazole Sodium 40 mg/ (Sodium Chloride) 10 mls @ 300 mls/hr IV DAILY [facility] Last Admin: 09/01/19 08:37 Dose: 300 mls/hr Ketorolac Tromethamine (Toradol) 30 mg IVPUSH ONETIME PRN PRN Reason: Pain Lorazepam (Ativan) 0 mg IVPUSH Q4H PRN; Protocol PRN Reason: CIWA PROTOCOL Last Admin: 09/01/19 01:35 Dose: 1 mg Metoprolol Succinate (Toprol Xl) 50 mg PO DAILY [facility] Last Admin: 09/01/19 08:42 Dose: 50 mg Nicotine (Habitrol) 14 mg TRDERM DAILY [facility] Last Admin: 09/01/19 08:45 Dose: 14 mg Ondansetron HCl (Zofran) 4 mg IVPUSH Q4H PRN PRN Reason: Nausea/Vomiting Quetiapine Fumarate (Seroquel) 50 mg PO BEDTIME BISI Quetiapine Fumarate (Seroquel) 50 mg PO BEDTIME PRN PRN Reason: ANXIETY Sodium Chloride (Saline Flush) 10 ml FLUSH ASDIRECTED PRN PRN Reason: Keep Vein Open Last Admin: 08/31/19 04:43 Dose: 10 ml Sodium Chloride (Saline Flush) 2.5 ml FLUSH ASDIRECTED PRN PRN Reason: Keep Vein Open Last Admin: 08/31/19 04:43 Dose: 2.5 ml Discontinued Medications Famotidine (Pepcid) 20 mg IVPUSH ONETIME ONE Stop: 08/31/19 04:28 Last Admin: 08/31/19 04:42 Dose: 20 mg Folic Acid (Folic Acid) 1 mg PO DAILY [facility] Last Admin: 08/31/19 09:15 Dose: 1 mg Folic Acid (Folic Acid) 1 mg IV DAILY [facility] Last Admin: 08/31/19 10:36 Dose: Not Given Heparin Sodium (Porcine) (Heparin Sodium) 5,000 units IVPUSH Q12H [facility] Hydromorphone HCl (Dilaudid) 1 mg IVPUSH ONETIME ONE Stop: 08/31/19 04:28 Last Admin: 08/31/19 04:40 Dose: 1 mg Hydromorphone HCl (Dilaudid) 1 mg IVPUSH ONETIME ONE Stop: 08/31/19 05:36 Last Admin: 08/31/19 05:42 Dose: 1 mg Hydromorphone HCl (Dilaudid) 1 mg IVPUSH ONETIME ONE Stop: 08/31/19 08:53 Last Admin: 08/31/19 09:04 Dose: 1 mg Hydromorphone HCl (Dilaudid) 1 mg IVPUSH Q4H PRN PRN Reason: Pain Sodium Chloride (Normal Saline) 1,000 mls @ 1,000 mls/hr IV .Bolus ONE Stop: 08/31/19 05:26 Last Admin: 08/31/19 04:39 Dose: 1,000 mls/hr Pantoprazole Sodium 40 mg/ (Sodium Chloride) 10 mls @ 300 mls/hr IV NOW ONE Stop: 08/31/19 06:16 Last Admin: 08/31/19 06:20 Dose: 300 mls/hr Lactated Ringer's (Ringers, Lactated) 1,000 mls @ 125 mls/hr IV ASDIRECTED BISI Last Admin: 08/31/19 07:30 Dose: 125 mls/hr Magnesium Sulfate 2 gm/ Premix 50 mls @ 50 mls/hr IV ONETIME ONE Stop: 08/31/19 09:18 Last Admin: 08/31/19 09:06 Dose: 50 mls/hr Pantoprazole Sodium 40 mg/ (Sodium Chloride) 10 mls @ 300 mls/hr IV BID BISI Last Admin: 08/31/19 21:22 Dose: 300 mls/hr Sodium Chloride (Normal Saline) 1,000 mls @ 200 mls/hr IV STAT ONE Stop: 08/31/19 13:36 Last Admin: 08/31/19 09:08 Dose: 200 mls/hr Ceftriaxone Sodium/Dextrose 1 (gm/ Premix) 50 mls @ 100 mls/hr IV DAILY ONE Stop: 08/31/19 09:24 Last Admin: 08/31/19 10:25 Dose: 100 mls/hr Iopamidol (Isovue Multipack-370 (76%)) 100 ml IVPUSH ONETIME STA Stop: 08/31/19 05:46 Last Admin: 08/31/19 05:46 Dose: 100 ml Morphine Sulfate (Morphine) 2 mg IVPUSH Q4H PRN PRN Reason: Pain Last Admin: 08/31/19 07:30 Dose: 2 mg Ondansetron HCl (Zofran) 4 mg IVPUSH ONETIME ONE Stop: 08/31/19 04:28 Last Admin: 08/31/19 04:39 Dose: 4 mg Potassium Chloride (Klor-Con M20) 40 meq PO ONETIME ONE Stop: 08/31/19 08:40 Last Admin: 08/31/19 09:14 Dose: 40 meq Quetiapine Fumarate (Seroquel) 50 mg PO BEDTIME [facility] Last Admin: 08/31/19 22:56 Dose: Not Given Quetiapine Fumarate (Seroquel) 100 mg PO BEDTIME [facility] Last Admin: 08/31/19 23:08 Dose: 100 mg - Exam Quality Assessment: No: Supplemental Oxygen General: Alert, Oriented, Cooperative, No Acute Distress HEENT: EOMI Neck: Supple Lungs: Clear to Auscultation, Normal Respiratory Effort Cardiovascular: Regular Rate, Regular Rhythm GI/Abdominal Exam: Other (abdominal tenderness diffusely ; + suprapubic tenderness ) Back Exam: Full Range of Motion Wound/Incisions: Healing Well Neurological: No New Focal Deficit Psy/Mental Status: Alert, Normal Affect Sepsis Event Note - Evaluation Sepsis Screening Result: Sepsis Risk - Focused Exam Vital Signs: Vital Signs Temp Pulse Pulse Resp BP BP Pulse Ox 09/01/19 08:44 138/82 09/01/19 08:42 96 138/82 09/01/19 08:00 97.2 F 96 19 138/82 93 L 09/01/19 04:24 99.3 F 92 20 138/85 92 L 09/01/19 00:13 98 F 88 18 141/81 H 91 L Date Exam was Performed: 09/01/19 Time Exam was Performed: 11:55 - Problem List Review Problem List Initiated/Reviewed/Updated: Yes - My Orders Last 24 Hours: My Active Orders 08/31/19 17:59 Ketorolac [Toradol] 30 mg IVPUSH ONETIME PRN 08/31/19 20:30 Heparin Sodium 5,000 units SUBCUT Q12H 09/01/19 09:00 Folic Acid 1 mg SUBCUT DAILY Pantoprazole [ProTONIX IV] 40 mg Sodium Chloride 0.9% [Normal Saline] 10 ml IV DAILY 09/01/19 09:48 Admission Status [Patient Status] [ADT] Routine - Plan Plan:: Assessment acute epigastric pain in the setting of pancreatitis versus duodenitis:elevated Lipase Daily alcohol use Tobacco abuse 1 pack/day History of peptic ulcer disease Past medical history: Hypertension, morbid obesity, peptic ulcer disease, 1 PPD of tobacco/abuse Hypokalemia: resolved Hypomagnesemia:resolved Transaminitis : rsolved UTI on Rocephin macrocytic anemia Plan Switched to inpatient status Full code. GI prophylaxis IV PPI 40 mg twice today; daily starting tomorrow. DVT prophylaxis Heparin 5000 twice daily. Vitals per routine. Activity up ad jenniefr. Diet; n.p.o. plus sips and chips. 1. Acute pancreatitis versus acute duodenitis; as seen on CT abdomen pelvis; we will continue to manage patient with pain control; currently hemodynamically stable; IV PPI twice daily today+ plus n.p.o. continue to manage pain with Dilaudid q4hrs for now. We will order a stool study for H. pylori and occult blood 2. Daily alcohol use; 2 mixed drinks +1 beer nightly; CIWA protocol with Ativan per protocol. Continue to monitor. 3. Hypertension; continue home medications 4. Zofran every 4 hours as needed vomiting/nausea. 14mcg Nicotine patch 5. UTI: suprapubic tenderness but no polyuria/dysuria; 1 gram rocephin daily ; will adjust w. cultures 6. Lipid panel: ordered; no major derangements; pt. self-discontinued his Statin medication at home; will consider restarting on discharge.
[2019-09-01] MEDS ORDERED: cefTRIAXone 1 GM in Premix Bag 1 BAG IV ONE (18:49)
[2019-09-02] MEDS: HYDROmorphone 1 MG/ML Syringe IVPUSH PRN ×4 (04:29→18:59)
[2019-09-02] MEDS: Sodium Chloride 0.9% 1,000 ML IV SCH ×4 (04:29→17:41)
[2019-09-02 06:38] LABS: BLOOD UREA NITROGEN,BUN 8 mg/dL (7.0-18.0); CARBON DIOXIDE,CO2 23.5 mmol/L (21.0-32.0); CHLORIDE,CL 103 mmol/L (98-107); GLUCOSE RANDOM 100 mg/dL (74-106); POTASSIUM,K 3.8 mmol/L (3.5-5.1); SODIUM,NA 137 mmol/L (136-148)
[2019-09-02] MEDS ORDERED: cefTRIAXone 1 GM in Premix Bag 1 BAG IV SCH ×2 (07:45→18:00)
[2019-09-02] MEDS: Heparin Sodium 5,000 Units/ML Vial SUBCUT SCH ×2 (09:23→20:49)
[2019-09-02] MEDS: Folic Acid 50 MG/10 ML MDV SUBCUT SCH (09:35)
[2019-09-02] MEDS: Pantoprazole 40 MG in Sodium Chloride 0.9% 10 ML IV SCH (09:37)
[2019-09-02] MEDS: Thiamine 100 MG in Sodium Chloride 0.9% 100 ML IV SCH (09:40)
[2019-09-02] MEDS: amLODIPine 5 MG Tab PO SCH (09:45)
[2019-09-02] MEDS: Metoprolol Succinate 50 MG Tab.ER PO SCH (09:46)
[2019-09-02] MEDS: Nicotine 14 MG/24 Hr Patch TRDERM SCH (09:46)
--- NOTE | 2019-09-02 11:27 | PCM.PN ---
- General Info Date of Service: 09/02/19 - Review of Systems General: Denies: Fever, Weakness, Chills HEENT: Reports: No Symptoms Pulmonary: Reports: No Symptoms Cardiovascular: Reports: No Symptoms Gastrointestinal: Reports: Abdominal Pain, Nausea. Denies: Constipation, Diarrhea, Melena, Vomiting Genitourinary: Reports: No Symptoms Musculoskeletal: Reports: No Symptoms Neurological: Reports: No Symptoms - Patient Data Vitals - Most Recent: Last Vital Signs Temp 100 F 09/02/19 04:24 Pulse 82 09/02/19 09:46 Resp 18 09/02/19 04:24 BP 138/75 09/02/19 09:46 Pulse Ox 93 L 09/02/19 04:24 Weight - Most Recent: 164.6 kg I&O - Last 24 Hours: Intake & Output 09/01/19 09/02/19 09/02/19 22:59 06:59 14:59 Intake Total 1813 Output Total 1050 Balance 763 Lab Results Last 24 Hours: Laboratory Results - last 24 hr 09/02/19 09/02/19 Range/Units 06:07 06:07 WBC 11.63 H (4.0-11.0) K/uL RBC 3.90 L (4.50-5.90) M/uL Hgb 12.7 L (13.0-17.0) g/dL Hct 39.9 (38.0-50.0) % MCV 102.3 H (80.0-98.0) fL MCH 32.6 H (27.0-32.0) pg MCHC 31.8 (31.0-37.0) g/dL RDW Std Deviation 59.8 (28.0-62.0) fl RDW Coeff of Venkatesh 16 H (11.0-15.0) % Plt Count 237 (150-400) K/uL MPV 10.50 (7.40-12.00) fL Neut % (Auto) 67.9 (48.0-80.0) % Lymph % (Auto) 18.6 (16.0-40.0) % Real % (Auto) 9.8 (0.0-15.0) % Eos % (Auto) 3.4 (0.0-7.0) % Baso % (Auto) 0.3 (0.0-1.5) % Neut # (Auto) 7.9 H (1.4-5.7) K/uL Lymph # (Auto) 2.2 (0.6-2.4) K/uL Real # (Auto) 1.1 H (0.0-0.8) K/uL Eos # (Auto) 0.4 (0.0-0.7) K/uL Baso # (Auto) 0.0 (0.0-0.1) K/uL Nucleated RBC % 0.0 /100WBC Nucleated RBCs # 0 K/uL Sodium 137 (136-148) mmol/L Potassium 3.8 (3.5-5.1) mmol/L Chloride 103 (98-107) mmol/L Carbon Dioxide 23.5 (21.0-32.0) mmol/L BUN 8 (7.0-18.0) mg/dL Creatinine 0.8 (0.8-1.3) mg/dL Est Cr Clr Drug Dosing 158.23 mL/min Estimated GFR (MDRD) > 60.0 ml/min Glucose 100 (74-106) mg/dL Calcium 8.2 L (8.5-10.1) mg/dL Total Bilirubin 0.8 (0.2-1.0) mg/dL AST 22 (15-37) IU/L ALT 46 (14-63) IU/L Alkaline Phosphatase 59 (46-116) U/L Total Protein 6.1 L (6.4-8.2) g/dL Albumin 3.0 L (3.4-5.0) g/dL Globulin 3.9 (2.6-4.0) g/dL Albumin/Globulin Ratio 1.0 (0.9-1.6) Med Orders - Current: Current Medications Amlodipine Besylate (Norvasc) 10 mg PO DAILY [facility] Last Admin: 09/02/19 09:45 Dose: 10 mg Folic Acid (Folic Acid) 1 mg SUBCUT DAILY [facility] Last Admin: 09/02/19 09:35 Dose: 1 mg Heparin Sodium (Porcine) (Heparin Sodium) 5,000 units SUBCUT Q12H [facility] Last Admin: 09/02/19 09:23 Dose: 5,000 units Hydromorphone HCl (Dilaudid) 1 mg IVPUSH Q4H PRN PRN Reason: Pain Last Admin: 09/02/19 09:29 Dose: 1 mg Sodium Chloride (Normal Saline) 1,000 mls @ 125 mls/hr IV Q5H [facility] Last Admin: 09/02/19 09:33 Dose: 200 mls/hr Thiamine HCl 100 mg/ Sodium (Chloride) 101 mls @ 202 mls/hr IV DAILY [facility] Last Admin: 09/02/19 09:40 Dose: 202 mls/hr Pantoprazole Sodium 40 mg/ (Sodium Chloride) 10 mls @ 300 mls/hr IV DAILY [facility] Last Admin: 09/02/19 09:37 Dose: 300 mls/hr Ceftriaxone Sodium/Dextrose 1 (gm/ Premix) 50 mls @ 100 mls/hr IV Q24H [facility] Ketorolac Tromethamine (Toradol) 30 mg IVPUSH ONETIME PRN PRN Reason: Pain Lorazepam (Ativan) 0 mg IVPUSH Q4H PRN; Protocol PRN Reason: CIWA PROTOCOL Last Admin: 09/01/19 01:35 Dose: 1 mg Metoprolol Succinate (Toprol Xl) 50 mg PO DAILY [facility] Last Admin: 09/02/19 09:46 Dose: 50 mg Nicotine (Habitrol) 14 mg TRDERM DAILY [facility] Last Admin: 09/02/19 09:46 Dose: 14 mg Ondansetron HCl (Zofran) 4 mg IVPUSH Q4H PRN PRN Reason: Nausea/Vomiting Quetiapine Fumarate (Seroquel) 50 mg PO BEDTIME [facility] Last Admin: 09/01/19 21:56 Dose: 50 mg Quetiapine Fumarate (Seroquel) 50 mg PO BEDTIME PRN PRN Reason: ANXIETY Last Admin: 09/01/19 21:57 Dose: 50 mg Sodium Chloride (Saline Flush) 10 ml FLUSH ASDIRECTED PRN PRN Reason: Keep Vein Open Last Admin: 08/31/19 04:43 Dose: 10 ml Sodium Chloride (Saline Flush) 2.5 ml FLUSH ASDIRECTED PRN PRN Reason: Keep Vein Open Last Admin: 08/31/19 04:43 Dose: 2.5 ml Discontinued Medications Famotidine (Pepcid) 20 mg IVPUSH ONETIME ONE Stop: 08/31/19 04:28 Last Admin: 08/31/19 04:42 Dose: 20 mg Folic Acid (Folic Acid) 1 mg PO DAILY [facility] Last Admin: 08/31/19 09:15 Dose: 1 mg Folic Acid (Folic Acid) 1 mg IV DAILY [facility] Last Admin: 08/31/19 10:36 Dose: Not Given Heparin Sodium (Porcine) (Heparin Sodium) 5,000 units IVPUSH Q12H [facility] Hydromorphone HCl (Dilaudid) 1 mg IVPUSH ONETIME ONE Stop: 08/31/19 04:28 Last Admin: 08/31/19 04:40 Dose: 1 mg Hydromorphone HCl (Dilaudid) 1 mg IVPUSH ONETIME ONE Stop: 08/31/19 05:36 Last Admin: 08/31/19 05:42 Dose: 1 mg Hydromorphone HCl (Dilaudid) 1 mg IVPUSH ONETIME ONE Stop: 08/31/19 08:53 Last Admin: 08/31/19 09:04 Dose: 1 mg Hydromorphone HCl (Dilaudid) 1 mg IVPUSH Q4H PRN PRN Reason: Pain Sodium Chloride (Normal Saline) 1,000 mls @ 1,000 mls/hr IV .Bolus ONE Stop: 08/31/19 05:26 Last Admin: 08/31/19 04:39 Dose: 1,000 mls/hr Pantoprazole Sodium 40 mg/ (Sodium Chloride) 10 mls @ 300 mls/hr IV NOW ONE Stop: 08/31/19 06:16 Last Admin: 08/31/19 06:20 Dose: 300 mls/hr Lactated Ringer's (Ringers, Lactated) 1,000 mls @ 125 mls/hr IV ASDIRECTED [facility] Last Admin: 08/31/19 07:30 Dose: 125 mls/hr Magnesium Sulfate 2 gm/ Premix 50 mls @ 50 mls/hr IV ONETIME ONE Stop: 08/31/19 09:18 Last Admin: 08/31/19 09:06 Dose: 50 mls/hr Pantoprazole Sodium 40 mg/ (Sodium Chloride) 10 mls @ 300 mls/hr IV BID [facility] Last Admin: 08/31/19 21:22 Dose: 300 mls/hr Sodium Chloride (Normal Saline) 1,000 mls @ 200 mls/hr IV STAT ONE Stop: 08/31/19 13:36 Last Admin: 08/31/19 09:08 Dose: 200 mls/hr Ceftriaxone Sodium/Dextrose 1 (gm/ Premix) 50 mls @ 100 mls/hr IV DAILY ONE Stop: 08/31/19 09:24 Last Admin: 08/31/19 10:25 Dose: 100 mls/hr Ceftriaxone Sodium/Dextrose 1 (gm/ Premix) 50 mls @ 100 mls/hr IV ONETIME ONE Stop: 09/01/19 19:18 Last Admin: 09/01/19 19:28 Dose: 100 mls/hr Ceftriaxone Sodium/Dextrose 1 (gm/ Premix) 50 mls @ 100 mls/hr IV Q24H [facility] Last Admin: 09/02/19 08:46 Dose: Not Given Iopamidol (Isovue Multipack-370 (76%)) 100 ml IVPUSH ONETIME STA Stop: 08/31/19 05:46 Last Admin: 08/31/19 05:46 Dose: 100 ml Morphine Sulfate (Morphine) 2 mg IVPUSH Q4H PRN PRN Reason: Pain Last Admin: 08/31/19 07:30 Dose: 2 mg Ondansetron HCl (Zofran) 4 mg IVPUSH ONETIME ONE Stop: 08/31/19 04:28 Last Admin: 08/31/19 04:39 Dose: 4 mg Potassium Chloride (Klor-Con M20) 40 meq PO ONETIME ONE Stop: 08/31/19 08:40 Last Admin: 08/31/19 09:14 Dose: 40 meq Quetiapine Fumarate (Seroquel) 50 mg PO BEDTIME [facility] Last Admin: 08/31/19 22:56 Dose: Not Given Quetiapine Fumarate (Seroquel) 100 mg PO BEDTIME [facility] Last Admin: 08/31/19 23:08 Dose: 100 mg - Exam Quality Assessment: No: Supplemental Oxygen General: Alert, Oriented, Cooperative, No Acute Distress HEENT: Mucous Membr. Moist/[place] Neck: Supple Lungs: Clear to Auscultation, Normal Respiratory Effort Cardiovascular: Regular Rate, Regular Rhythm GI/Abdominal Exam: Soft, Other (tenderness ; diffusely improving ) Back Exam: Normal Inspection Extremities: Other (+1 mild pitting edema ; mid ankle ) Skin: Warm, Dry Wound/Incisions: Healing Well Neurological: No New Focal Deficit Psy/Mental Status: Alert, Normal Mood Sepsis Event Note - Evaluation Sepsis Screening Result: No Definite Risk - Focused Exam Vital Signs: Vital Signs Temp Pulse Pulse Resp BP BP Pulse Ox 09/02/19 09:46 82 138/75 09/02/19 09:45 138/75 09/02/19 04:24 100 F 111 H 18 117/55 L 93 L 09/01/19 23:42 99.2 F 105 H 20 140/75 91 L Date Exam was Performed: 09/02/19 Time Exam was Performed: 11:28 - Problem List Review Problem List Initiated/Reviewed/Updated: Yes - My Orders Last 24 Hours: My Active Orders 09/02/19 18:00 [email or web address] [Rocephin in Dextrose,Iso-Osm 1 GM/50 ML] 1 gm Premix Bag 1 bag IV Q24H - Plan Plan:: Assessment acute epigastric pain in the setting of pancreatitis versus duodenitis:elevated Lipase Daily alcohol use Macrocytic anemia Tobacco abuse 1 pack/day History of peptic ulcer disease Past medical history: Hypertension, morbid obesity, peptic ulcer disease, 1 PPD of tobacco/abuse Hypokalemia: resolved Hypomagnesemia:resolved Transaminitis : resolved UTI on Rocephin macrocytic anemia Plan Switched to inpatient status Full code. GI prophylaxis IV PPI 40 mg daily; daily starting tomorrow. DVT prophylaxis Heparin 5000 twice daily. Vitals per routine. Activity up ad jennifer. Diet; n.p.o. plus sips and chips. Will consider advancing diet as tolerated if pain controlled 1. Acute pancreatitis versus acute duodenitis; as seen on CT abdomen pelvis; we will continue to manage patient with pain control; currently hemodynamically stable; IV PPI daily today+ plus n.p.o. continue to manage pain with Dilaudid q4hrs for now. Advance as tolerated. We will order a stool study for H. pylori and occult blood 2. Daily alcohol use; 2 mixed drinks +1 beer nightly; CIWA protocol with Ativan per protocol. Continue to monitor. 3. Hypertension; continue home medications 4. Zofran every 4 hours as needed vomiting/nausea. 14mcg Nicotine patch 5. UTI: suprapubic tenderness but no polyuria/dysuria; 1 gram rocephin daily ; will adjust w. cultures 6. Lipid panel: ordered; no major derangements; pt. self-discontinued his Statin medication at home; will consider restarting on discharge.
[2019-09-03] MEDS: HYDROmorphone 1 MG/ML Syringe IVPUSH PRN ×2 (01:11→07:24)
[2019-09-03] MEDS: Sodium Chloride 0.9% 1,000 ML IV SCH ×3 (02:54→08:20)
[2019-09-03 06:54] LABS: BLOOD UREA NITROGEN,BUN 6 mg/dL (7.0-18.0); CARBON DIOXIDE,CO2 25.1 mmol/L (21.0-32.0); CHLORIDE,CL 103 mmol/L (98-107); GLUCOSE RANDOM 105 mg/dL (74-106); POTASSIUM,K 3.3 mmol/L (3.5-5.1); SODIUM,NA 137 mmol/L (136-148)
[2019-09-03 07:26] VITALS: BP 137/84
[2019-09-03] MEDS ORDERED: Potassium Chloride 20 MEQ Tab.ER PO ONE (08:14)
[2019-09-03] MEDS: Metoprolol Succinate 50 MG Tab.ER PO SCH (08:22)
[2019-09-03] MEDS: amLODIPine 5 MG Tab PO SCH (08:22)
[2019-09-03] MEDS: Pantoprazole 40 MG in Sodium Chloride 0.9% 10 ML IV SCH (08:24)
[2019-09-03] MEDS: Heparin Sodium 5,000 Units/ML Vial SUBCUT SCH (08:26)
[2019-09-03] MEDS: Folic Acid 50 MG/10 ML MDV SUBCUT SCH (08:26)
[2019-09-03 08:27] VITALS: PULSE 106
[2019-09-03] MEDS: Nicotine 14 MG/24 Hr Patch TRDERM SCH (08:30)
[2019-09-03] MEDS: Thiamine 100 MG in Sodium Chloride 0.9% 100 ML IV SCH (09:48)
--- NOTE | 2019-09-03 11:12 | PCM.DCSUM1 ---
<Yumi Douglas - Last Filed: 09/03/19 13:37> Discharge Summary - Hospital Course Free Text/Narrative:: pt. is a morbidly obese male w. PMH of tobacco abuse, HTN and anxiety presenting w. acute abdominal pain. ED course: elevated Lipase, transaminitis, CT abdomen pelvis suggest pancreatitis w. concerns for Duodenitis. LR bolus given. pt. admitted for acute pancreatitis/duodenitis +UA Hospital course: Admitted for +pancreatitis /duodenitis and +UTI pt. co abd. pain and mild suprapubic pain. Made NPO and started on IV NS. Pain control achieved w. Dilaudid and Toradol. CIWAA and Ativan per protocol iniitated as pt. drinks about 2-3 drinks nightly and has for at least 1-week prior. Tobacco abuse: nicotine patch applied. UTI: started on 1 gram Rocephin daily pt. throughout stay began to improve w. advancement of diet. Leukocytosis improved. Electrolytes repleted as needed. Transaminitis improving. pt requested to go home. Sent home with additional 4 tabs of oxycodone for breakthrough pain. Advised to use Tylenol instead of ibuprofen for home pain management. Discussed need to dc ETOH and tobacco. Follow up provided on discharge w. PCP and GI pt stable and improving ; requesting to go home. Additional 4 days of Levaquin daily provided or UTI; advised to notify provider if symptoms returns worse. pt understood. - Discharge Data Discharge Date: 09/03/19 Discharge Disposition: Home, Self-Care 01 Condition: Stable - Referral to Home Health Primary Care Physician: Harman Cole MD - Discharge Plan Prescriptions/Med Rec: levoFLOXacin [Levaquin] 750 mg PO DAILY 5 Days #5 tab oxyCODONE 5 mg PO DAILY PRN 4 Days #4 tab PRN Reason: Pain Home Medications: Home Meds Metoprolol Succinate [Toprol XL] 50 mg PO DAILY 12/25/17 [History] Pantoprazole Sodium [Protonix] 40 mg PO DAILY 12/25/17 [History] QUEtiapine Fumarate [Seroquel] 50 - 100 mg PO BEDTIME 12/25/17 [History] amLODIPine Besylate [Amlodipine Besylate] 10 mg PO DAILY 11/24/18 [History] Phentermine HCl [Adipex-P] 37.5 mg PO DAILY 08/31/19 [History] Nicotine [Habitrol] 14 mg TRDERM DAILY patch 09/03/19 [Rx] levoFLOXacin [Levaquin] 750 mg PO DAILY 5 Days #5 tab 09/03/19 [Rx] oxyCODONE 5 mg PO DAILY PRN 4 Days #4 tab 09/03/19 [Rx] Patient Handouts: Acute Pancreatitis, [id number], Oxycodone tablets or capsules, Levofloxacin tablets Referrals: [facility] [Outside] Ava Barrera MD [Ordering Only Provider] - 09/15/19 8:00 am Harman Cole MD [Primary Care Provider] - 09/08/19 9:45 am (Arrive 15 minutes with photo ID, insurance card, and discharge paperwork. If you are not early they will not see you. ) - Discharge Summary/Plan Comment DC Time >30 min.: No - Patient Data Vitals - Most Recent: Last Vital Signs Temp 98.1 F 09/03/19 07:25 Pulse 106 H 09/03/19 08:22 Resp 16 09/03/19 07:25 BP 137/84 09/03/19 08:22 Pulse Ox 93 L 09/03/19 07:25 Weight - Most Recent: 164.6 kg I&O - Last 24 hours: Intake & Output 09/02/19 09/03/19 09/03/19 22:59 06:59 14:59 Intake Total 1717 Output Total 670 Balance 1047 Lab Results - Last 24 hrs: Laboratory Results - last 24 hr 09/03/19 09/03/19 09/03/19 Range/Units 05:50 05:50 05:50 WBC 8.73 (4.0-11.0) K/uL RBC 3.61 L (4.50-5.90) M/uL Hgb 12.0 L (13.0-17.0) g/dL Hct 36.3 L (38.0-50.0) % MCV 100.6 H (80.0-98.0) fL MCH 33.2 H (27.0-32.0) pg MCHC 33.1 (31.0-37.0) g/dL RDW Std Deviation 57.2 (28.0-62.0) fl RDW Coeff of Venkatesh 16 H (11.0-15.0) % Plt Count 236 (150-400) K/uL MPV 10.90 (7.40-12.00) fL Neut % (Auto) 64.1 (48.0-80.0) % Lymph % (Auto) 21.0 (16.0-40.0) % [place] % (Auto) 10.1 (0.0-15.0) % Eos % (Auto) 4.5 (0.0-7.0) % Baso % (Auto) 0.3 (0.0-1.5) % Neut # (Auto) 5.6 (1.4-5.7) K/uL Lymph # (Auto) 1.8 (0.6-2.4) K/uL [place] # (Auto) 0.9 H (0.0-0.8) K/uL Eos # (Auto) 0.4 (0.0-0.7) K/uL Baso # (Auto) 0.0 (0.0-0.1) K/uL Nucleated RBC % 0.0 /100WBC Nucleated RBCs # 0 K/uL Sodium 137 (136-148) mmol/L Potassium 3.3 L (3.5-5.1) mmol/L Chloride 103 (98-107) mmol/L Carbon Dioxide 25.1 (21.0-32.0) mmol/L BUN 6 L (7.0-18.0) mg/dL Creatinine 0.7 L (0.8-1.3) mg/dL Est Cr Clr Drug Dosing 180.83 mL/min Estimated GFR (MDRD) > 60.0 ml/min Glucose 105 (74-106) mg/dL Calcium 8.3 L (8.5-10.1) mg/dL Magnesium 1.8 (1.8-2.4) mg/dL Total Bilirubin 0.5 (0.2-1.0) mg/dL AST 21 (15-37) IU/L ALT 39 (14-63) IU/L Alkaline Phosphatase 53 (46-116) U/L Total Protein 5.9 L (6.4-8.2) g/dL Albumin 2.7 L (3.4-5.0) g/dL Globulin 3.2 (2.6-4.0) g/dL Albumin/Globulin Ratio 0.8 L (0.9-1.6) Med Orders - Current: Current Medications Amlodipine Besylate (Norvasc) 10 mg PO DAILY [facility] Last Admin: 09/03/19 08:22 Dose: 10 mg Folic Acid (Folic Acid) 1 mg SUBCUT DAILY [facility] Last Admin: 09/03/19 08:26 Dose: 1 mg Heparin Sodium (Porcine) (Heparin Sodium) 5,000 units SUBCUT Q12H [facility] Last Admin: 09/03/19 08:26 Dose: 5,000 units Hydromorphone HCl (Dilaudid) 1 mg IVPUSH Q6H PRN PRN Reason: Pain Last Admin: 09/03/19 07:24 Dose: 1 mg Sodium Chloride (Normal Saline) 1,000 mls @ 125 mls/hr IV Q5H [facility] Last Admin: 09/03/19 08:20 Dose: 125 mls/hr Thiamine HCl 100 mg/ Sodium (Chloride) 101 mls @ 202 mls/hr IV DAILY [facility] Last Admin: 09/03/19 09:48 Dose: 202 mls/hr Pantoprazole Sodium 40 mg/ (Sodium Chloride) 10 mls @ 300 mls/hr IV DAILY [facility] Last Admin: 09/03/19 08:24 Dose: 300 mls/hr Ceftriaxone Sodium/Dextrose 1 (gm/ Premix) 50 mls @ 100 mls/hr IV Q24H [facility] Last Admin: 09/02/19 18:52 Dose: 100 mls/hr Ketorolac Tromethamine (Toradol) 30 mg IVPUSH ONETIME PRN PRN Reason: Pain Lorazepam (Ativan) 0 mg IVPUSH Q4H PRN; Protocol PRN Reason: CIWA PROTOCOL Last Admin: 09/01/19 01:35 Dose: 1 mg Metoprolol Succinate (Toprol Xl) 50 mg PO DAILY [facility] Last Admin: 09/03/19 08:22 Dose: 50 mg Nicotine (Habitrol) 14 mg TRDERM DAILY [facility] Last Admin: 09/03/19 08:30 Dose: 14 mg Ondansetron HCl (Zofran) 4 mg IVPUSH Q4H PRN PRN Reason: Nausea/Vomiting Quetiapine Fumarate (Seroquel) 50 mg PO BEDTIME [facility] Last Admin: 09/02/19 20:50 Dose: 50 mg Quetiapine Fumarate (Seroquel) 50 mg PO BEDTIME PRN PRN Reason: ANXIETY Last Admin: 09/02/19 21:22 Dose: 50 mg Sodium Chloride (Saline Flush) 10 ml FLUSH ASDIRECTED PRN PRN Reason: Keep Vein Open Last Admin: 08/31/19 04:43 Dose: 10 ml Sodium Chloride (Saline Flush) 2.5 ml FLUSH ASDIRECTED PRN PRN Reason: Keep Vein Open Last Admin: 08/31/19 04:43 Dose: 2.5 ml Discontinued Medications Famotidine (Pepcid) 20 mg IVPUSH ONETIME ONE Stop: 08/31/19 04:28 Last Admin: 08/31/19 04:42 Dose: 20 mg Folic Acid (Folic Acid) 1 mg PO DAILY [facility] Last Admin: 08/31/19 09:15 Dose: 1 mg Folic Acid (Folic Acid) 1 mg IV DAILY [facility] Last Admin: 08/31/19 10:36 Dose: Not Given Heparin Sodium (Porcine) (Heparin Sodium) 5,000 units IVPUSH Q12H [facility] Hydromorphone HCl (Dilaudid) 1 mg IVPUSH ONETIME ONE Stop: 08/31/19 04:28 Last Admin: 08/31/19 04:40 Dose: 1 mg Hydromorphone HCl (Dilaudid) 1 mg IVPUSH ONETIME ONE Stop: 08/31/19 05:36 Last Admin: 08/31/19 05:42 Dose: 1 mg Hydromorphone HCl (Dilaudid) 1 mg IVPUSH ONETIME ONE Stop: 08/31/19 08:53 Last Admin: 08/31/19 09:04 Dose: 1 mg Hydromorphone HCl (Dilaudid) 1 mg IVPUSH Q4H PRN PRN Reason: Pain Hydromorphone HCl (Dilaudid) 1 mg IVPUSH Q4H PRN PRN Reason: Pain Last Admin: 09/02/19 14:00 Dose: 1 mg Sodium Chloride (Normal Saline) 1,000 mls @ 1,000 mls/hr IV .Bolus ONE Stop: 08/31/19 05:26 Last Admin: 08/31/19 04:39 Dose: 1,000 mls/hr Pantoprazole Sodium 40 mg/ (Sodium Chloride) 10 mls @ 300 mls/hr IV NOW ONE Stop: 08/31/19 06:16 Last Admin: 08/31/19 06:20 Dose: 300 mls/hr Lactated Ringer's (Ringers, Lactated) 1,000 mls @ 125 mls/hr IV ASDIRECTED [facility] Last Admin: 08/31/19 07:30 Dose: 125 mls/hr Magnesium Sulfate 2 gm/ Premix 50 mls @ 50 mls/hr IV ONETIME ONE Stop: 08/31/19 09:18 Last Admin: 08/31/19 09:06 Dose: 50 mls/hr Pantoprazole Sodium 40 mg/ (Sodium Chloride) 10 mls @ 300 mls/hr IV BID [facility] Last Admin: 08/31/19 21:22 Dose: 300 mls/hr Sodium Chloride (Normal Saline) 1,000 mls @ 200 mls/hr IV STAT ONE Stop: 08/31/19 13:36 Last Admin: 08/31/19 09:08 Dose: 200 mls/hr Ceftriaxone Sodium/Dextrose 1 (gm/ Premix) 50 mls @ 100 mls/hr IV DAILY ONE Stop: 08/31/19 09:24 Last Admin: 08/31/19 10:25 Dose: 100 mls/hr Ceftriaxone Sodium/Dextrose 1 (gm/ Premix) 50 mls @ 100 mls/hr IV ONETIME ONE Stop: 09/01/19 19:18 Last Admin: 09/01/19 19:28 Dose: 100 mls/hr Ceftriaxone Sodium/Dextrose 1 (gm/ Premix) 50 mls @ 100 mls/hr IV Q24H [facility] Last Admin: 09/02/19 08:46 Dose: Not Given Iopamidol (Isovue Multipack-370 (76%)) 100 ml IVPUSH ONETIME STA Stop: 08/31/19 05:46 Last Admin: 08/31/19 05:46 Dose: 100 ml Morphine Sulfate (Morphine) 2 mg IVPUSH Q4H PRN PRN Reason: Pain Last Admin: 08/31/19 07:30 Dose: 2 mg Ondansetron HCl (Zofran) 4 mg IVPUSH ONETIME ONE Stop: 08/31/19 04:28 Last Admin: 08/31/19 04:39 Dose: 4 mg Potassium Chloride (Klor-Con M20) 40 meq PO ONETIME ONE Stop: 08/31/19 08:40 Last Admin: 08/31/19 09:14 Dose: 40 meq Potassium Chloride (Klor-Con M20) 40 meq PO ONETIME ONE Stop: 09/03/19 08:15 Last Admin: 09/03/19 08:34 Dose: 40 meq Quetiapine Fumarate (Seroquel) 50 mg PO BEDTIME [facility] Last Admin: 08/31/19 22:56 Dose: Not Given Quetiapine Fumarate (Seroquel) 100 mg PO BEDTIME [facility] Last Admin: 08/31/19 23:08 Dose: 100 mg <Rivas Maravilla J - Last Filed: 09/05/19 14:07> Discharge Summary - Referral to Home Health Primary Care Physician: Harman Cole MD - Patient Data Vitals - Most Recent: Last Vital Signs Temp 36.7 C 09/03/19 07:25 Pulse 106 H 09/03/19 08:22 Resp 16 09/03/19 07:25 BP 137/84 09/03/19 08:22 Pulse Ox 93 L 09/03/19 07:25 Med Orders - Current: Current Medications Discontinued Medications Amlodipine Besylate (Norvasc) 10 mg PO DAILY [facility] Last Admin: 09/03/19 08:22 Dose: 10 mg Famotidine (Pepcid) 20 mg IVPUSH ONETIME ONE Stop: 08/31/19 04:28 Last Admin: 08/31/19 04:42 Dose: 20 mg Folic Acid (Folic Acid) 1 mg PO DAILY [facility] Last Admin: 08/31/19 09:15 Dose: 1 mg Folic Acid (Folic Acid) 1 mg IV DAILY [facility] Last Admin: 08/31/19 10:36 Dose: Not Given Folic Acid (Folic Acid) 1 mg SUBCUT DAILY [facility] Last Admin: 09/03/19 08:26 Dose: 1 mg Heparin Sodium (Porcine) (Heparin Sodium) 5,000 units IVPUSH Q12H [facility] Heparin Sodium (Porcine) (Heparin Sodium) 5,000 units SUBCUT Q12H [facility] Last Admin: 09/03/19 08:26 Dose: 5,000 units Hydromorphone HCl (Dilaudid) 1 mg IVPUSH ONETIME ONE Stop: 08/31/19 04:28 Last Admin: 08/31/19 04:40 Dose: 1 mg Hydromorphone HCl (Dilaudid) 1 mg IVPUSH ONETIME ONE Stop: 08/31/19 05:36 Last Admin: 08/31/19 05:42 Dose: 1 mg Hydromorphone HCl (Dilaudid) 1 mg IVPUSH ONETIME ONE Stop: 08/31/19 08:53 Last Admin: 08/31/19 09:04 Dose: 1 mg Hydromorphone HCl (Dilaudid) 1 mg IVPUSH Q4H PRN PRN Reason: Pain Hydromorphone HCl (Dilaudid) 1 mg IVPUSH Q4H PRN PRN Reason: Pain Last Admin: 09/02/19 14:00 Dose: 1 mg Hydromorphone HCl (Dilaudid) 1 mg IVPUSH Q6H PRN PRN Reason: Pain Last Admin: 09/03/19 07:24 Dose: 1 mg Sodium Chloride (Normal Saline) 1,000 mls @ 1,000 mls/hr IV .Bolus ONE Stop: 08/31/19 05:26 Last Admin: 08/31/19 04:39 Dose: 1,000 mls/hr Pantoprazole Sodium 40 mg/ (Sodium Chloride) 10 mls @ 300 mls/hr IV NOW ONE Stop: 08/31/19 06:16 Last Admin: 08/31/19 06:20 Dose: 300 mls/hr Lactated Ringer's (Ringers, Lactated) 1,000 mls @ 125 mls/hr IV ASDIRECTED [facility] Last Admin: 08/31/19 07:30 Dose: 125 mls/hr Magnesium Sulfate 2 gm/ Premix 50 mls @ 50 mls/hr IV ONETIME ONE Stop: 08/31/19 09:18 Last Admin: 08/31/19 09:06 Dose: 50 mls/hr Pantoprazole Sodium 40 mg/ (Sodium Chloride) 10 mls @ 300 mls/hr IV BID [facility] Last Admin: 08/31/19 21:22 Dose: 300 mls/hr Sodium Chloride (Normal Saline) 1,000 mls @ 200 mls/hr IV STAT ONE Stop: 08/31/19 13:36 Last Admin: 08/31/19 09:08 Dose: 200 mls/hr Ceftriaxone Sodium/Dextrose 1 (gm/ Premix) 50 mls @ 100 mls/hr IV DAILY ONE Stop: 08/31/19 09:24 Last Admin: 08/31/19 10:25 Dose: 100 mls/hr Sodium Chloride (Normal Saline) 1,000 mls @ 125 mls/hr IV Q5H [facility] Last Admin: 09/03/19 08:20 Dose: 125 mls/hr Thiamine HCl 100 mg/ Sodium (Chloride) 101 mls @ 202 mls/hr IV DAILY [facility] Last Admin: 09/03/19 09:48 Dose: 202 mls/hr Pantoprazole Sodium 40 mg/ (Sodium Chloride) 10 mls @ 300 mls/hr IV DAILY [facility] Last Admin: 09/03/19 08:24 Dose: 300 mls/hr Ceftriaxone Sodium/Dextrose 1 (gm/ Premix) 50 mls @ 100 mls/hr IV ONETIME ONE Stop: 09/01/19 19:18 Last Admin: 09/01/19 19:28 Dose: 100 mls/hr Ceftriaxone Sodium/Dextrose 1 (gm/ Premix) 50 mls @ 100 mls/hr IV Q24H [facility] Last Admin: 09/02/19 08:46 Dose: Not Given Ceftriaxone Sodium/Dextrose 1 (gm/ Premix) 50 mls @ 100 mls/hr IV Q24H [facility] Last Admin: 09/02/19 18:52 Dose: 100 mls/hr Iopamidol (Isovue Multipack-370 (76%)) 100 ml IVPUSH ONETIME STA Stop: 08/31/19 05:46 Last Admin: 08/31/19 05:46 Dose: 100 ml Ketorolac Tromethamine (Toradol) 30 mg IVPUSH ONETIME PRN PRN Reason: Pain Lorazepam (Ativan) 0 mg IVPUSH Q4H PRN; Protocol PRN Reason: CIWA PROTOCOL Last Admin: 09/01/19 01:35 Dose: 1 mg Metoprolol Succinate (Toprol Xl) 50 mg PO DAILY [facility] Last Admin: 09/03/19 08:22 Dose: 50 mg Morphine Sulfate (Morphine) 2 mg IVPUSH Q4H PRN PRN Reason: Pain Last Admin: 08/31/19 07:30 Dose: 2 mg Nicotine (Habitrol) 14 mg TRDERM DAILY [facility] Last Admin: 09/03/19 08:30 Dose: 14 mg Ondansetron HCl (Zofran) 4 mg IVPUSH ONETIME ONE Stop: 08/31/19 04:28 Last Admin: 08/31/19 04:39 Dose: 4 mg Ondansetron HCl (Zofran) 4 mg IVPUSH Q4H PRN PRN Reason: Nausea/Vomiting Potassium Chloride (Klor-Con M20) 40 meq PO ONETIME ONE Stop: 08/31/19 08:40 Last Admin: 08/31/19 09:14 Dose: 40 meq Potassium Chloride (Klor-Con M20) 40 meq PO ONETIME ONE Stop: 09/03/19 08:15 Last Admin: 09/03/19 08:34 Dose: 40 meq Quetiapine Fumarate (Seroquel) 50 mg PO BEDTIME [facility] Last Admin: 08/31/19 22:56 Dose: Not Given Quetiapine Fumarate (Seroquel) 100 mg PO BEDTIME [facility] Last Admin: 08/31/19 23:08 Dose: 100 mg Quetiapine Fumarate (Seroquel) 50 mg PO BEDTIME [facility] Last Admin: 09/02/19 20:50 Dose: 50 mg Quetiapine Fumarate (Seroquel) 50 mg PO BEDTIME PRN PRN Reason: ANXIETY Last Admin: 09/02/19 21:22 Dose: 50 mg Sodium Chloride (Saline Flush) 10 ml FLUSH ASDIRECTED PRN PRN Reason: Keep Vein Open Last Admin: 08/31/19 04:43 Dose: 10 ml Sodium Chloride (Saline Flush) 2.5 ml FLUSH ASDIRECTED PRN PRN Reason: Keep Vein Open Last Admin: 08/31/19 04:43 Dose: 2.5 ml - Free Text/Narrative Note: I have seen and evaluated the patient with the resident. I have discussed findings and treatment plan with resident. I agree with the assessment and plan as outlined in the following note.
== END 2019-09-03 12:20 | disposition home or self-care (01) | DRG 241 ==
LOC: MW.ED 04:15 → MW.MS 06:19 → OBSVTOIN 09-01 09:48 → MW.MS 09-01 09:49
PROVIDERS: ADMIT Student in an Organized Health Care Education/Training Program; ATTEND Student in an Organized Health Care Education/Training Program
DX: K29.80 Duodenitis without bleeding (principal); K85.90 Acute pancreatitis without necrosis or infection, unspecified; N39.0 Urinary tract infection, site not specified; F17.210 Nicotine dependence, cigarettes, uncomplicated; E66.01 Morbid (severe) obesity due to excess calories; I10 Essential (primary) hypertension; E87.6 Hypokalemia; E83.42 Hypomagnesemia; Z87.442 Personal history of urinary calculi; Z90.49 Acquired absence of other specified parts of digestive tract; Z79.899 Other long term (current) drug therapy; Z68.41 Body mass index [BMI] 40.0-44.9, adult
CPT/HCPCS: 36415; 71045; 71045-26; 74177; 74177-26; 80053; 80061; 81001; 83036; 83690; 83735; 84100; 84484; 85025; 93005; 96361; 96365; 96372; 96374; 96375; 96376; 99284; 99285-25; A9270-GY; C9113; G0378; J0696; J1170; J1644; J2060; J2270; J2405; J3411; J3475; J3490; J7030; J7050; J7120; Q9967

== ENCOUNTER 2021-01-08 15:55 | Emergency (ER) | payer BC ==
[2021-01-08] MEDS ORDERED: fentaNYL 50 MCG/ML SDV IVPUSH ONE ×2 (16:38→17:53)
[2021-01-08] MEDS ORDERED: Sodium Chloride 0.9% 1,000 ML IV ONE (16:38)
[2021-01-08] MEDS ORDERED: Ondansetron 4 MG/2 ML SDV IVPUSH ONE (16:39)
--- NOTE | 2021-01-08 16:48 | PCM.EKG ---
#1 Interpretation EKG Date: 01/08/21 Time: 16:23 Rhythm: NSR Rate (Beats/Min): 70 Leonardo: Normal P-Wave: Present QRS: Normal ST-T: Normal QT: Normal NV/PQ Interval: 158 Comparison: NA - No Prior EKG EKG Interpretation Comments: Nonischemic EKG
[2021-01-08 17:03] LABS: BLOOD UREA NITROGEN,BUN 8 mg/dL (7.0-18.0); CARBON DIOXIDE,CO2 27.9 mmol/L (21.0-32.0); CHLORIDE,CL 101 mmol/L (98-107); GLUCOSE RANDOM 143 mg/dL (74-106); LIPASE 244 U/L (73-393); POTASSIUM,K 3.5 mmol/L (3.5-5.1); SODIUM,NA 140 mmol/L (136-148)
--- NOTE | 2021-01-08 17:03 | EDM.PDOC ---
ED HPI GENERAL MEDICAL PROBLEM - General Chief Complaint: Abdominal Pain Stated Complaint: STOMACH PAIN Time Seen by Provider: 01/08/21 15:58 Source of Information: Reports: Patient History Limitations: Reports: No Limitations - History of Present Illness INITIAL COMMENTS - FREE TEXT/NARRATIVE: Presents with a complaint of "stomach pain" for the last 2 days, poor appetite, cannot sleep, nausea and vomiting and blackish diarrhea along with a "lump in the back of my throat". Abd pain is diffuse but concentrated in the center above the umbilicus and radiating to the back. The patient states that about 3 or 4 weeks ago he had COVID with a positive test on December 28. Since that point time he has had a poor appetite and has lost 30 pounds. In the last 2 weeks he lost his brother and [id number] to COVID. He became depressed about that and for 2 to 3 days drank a fifth of alcohol a day. Has not drank for the last 2 days. He has a history of pancreatitis in the past from alcohol abuse. Past medical history including GERD, hypertension and dyslipidemia. He denies chest pain or shortness of breath. His fever has been "not high". abdomen Pain Score (Numeric/FACES): 8 - Related Data Allergies Allergy/AdvReac Type Severity Reaction Status Date / Time No Known Allergies Allergy Verified 01/08/21 16:12 Home Meds: Home Meds Metoprolol Succinate [Toprol XL] 50 mg PO DAILY 12/25/17 [History] Pantoprazole Sodium [Protonix] 40 mg PO DAILY 12/25/17 [History] QUEtiapine Fumarate [Seroquel] 50 - 100 mg PO BEDTIME 12/25/17 [History] Furosemide 20 mg PO DAILY 01/08/21 [History] HYDROcodone/Ibuprofen [Hydrocodone-Ibuprofen 7.5-200] 1 tab PO Q6HR PRN 7 Days # 28 tablet 01/08/21 [Rx] Losartan Potassium [Cozaar] 50 mg PO DAILY 01/08/21 [History] Ondansetron [Zofran ODT] 1 tab PO Q6H PRN #10 tab.dis 01/08/21 [Rx] Ondansetron [Zofran ODT] 1 tab PO Q6H PRN #10 tab.dis 01/08/21 [Rx] Past Medical History HEENT History: Reports: None Cardiovascular History: Reports: High Cholesterol, Hypertension Respiratory History: Reports: None Gastrointestinal History: Reports: Pancreatitis Genitourinary History: Reports: Renal Calculus Musculoskeletal History: Reports: None Neurological History: Reports: None Psychiatric History: Reports: None Endocrine/Metabolic History: Reports: None Hematologic History: Reports: None Immunologic History: Reports: None Oncologic (Cancer) History: Reports: None Dermatologic History: Reports: None - Infectious Disease History Infectious Disease History: Reports: Chicken Pox, MRSA - Past Surgical History Head Surgeries/Procedures: Reports: None HEENT Surgical History: Reports: Tonsillectomy, Other (See Below) Other HEENT Surgeries/Procedures: rhinoplasty Cardiovascular Surgical History: Reports: None Respiratory Surgical History: Reports: None GI Surgical History: Reports: Cholecystectomy Social & Family History - Family History Family Medical History: No Pertinent Family History - Caffeine Use Caffeine Use: Reports: Coffee, Energy Drinks, Soda - Recreational Drug Use Recreational Drug Use: No ED ROS GENERAL - Review of Systems Review Of Systems: Comprehensive ROS is negative, except as noted in HPI. ED EXAM, GI/ABD - Physical Exam Exam: See Below Exam Limited By: No Limitations General Appearance: Alert, Mild Distress (due to pain and anxiety) Ears: Normal External Exam Nose: Normal Inspection Throat/Mouth: Normal Inspection Head: Atraumatic, Normocephalic Neck: Normal Inspection Respiratory/Chest: No Respiratory Distress, Lungs Clear, Normal Breath Sounds Cardiovascular: Normal Peripheral Pulses, Regular Rate, Rhythm, No Edema GI/Abdominal Exam: Normal Bowel Sounds, Soft, No Distention, Tender (diffusely, more in the center) Course - Vital Signs Text/Narrative:: Discussion that there are no acute lab or imaging distressing findings but that the pancreatic mass absolutely needs prompt follow up. The patient has a local primary provider and will call for ab appointment in the am. Last Recorded V/S: Last Vital Signs Temp 37.1 C 01/08/21 16:09 Pulse 88 01/08/21 16:09 Resp 18 01/08/21 16:09 BP 157/109 H 01/08/21 16:09 Pulse Ox 97 01/08/21 16:09 - Orders/Labs/Meds Labs: Laboratory Tests 01/08/21 01/08/21 01/08/21 Range/Units 16:15 16:15 17:15 WBC 9.31 (4.0-11.0) K/uL RBC 4.99 (4.50-5.90) M/uL Hgb 16.5 (13.0-17.0) g/dL Hct 47.9 (38.0-50.0) % MCV 96.0 (80.0-98.0) fL MCH 33.1 H (27.0-32.0) pg MCHC 34.4 (31.0-37.0) g/dL RDW Std Deviation 65.6 H (28.0-62.0) fl RDW Coeff of Venkatesh 19 H (11.0-15.0) % Plt Count 186 (150-400) K/uL MPV 11.10 (7.40-12.00) fL Neut % (Auto) 52.3 (48.0-80.0) % Lymph % (Auto) 29.1 (16.0-40.0) % Randolph % (Auto) 16.6 H (0.0-15.0) % Eos % (Auto) 1.7 (0.0-7.0) % Baso % (Auto) 0.3 (0.0-1.5) % Neut # (Auto) 4.9 (1.4-5.7) K/uL Lymph # (Auto) 2.7 H (0.6-2.4) K/uL Randolph # (Auto) 1.6 H (0.0-0.8) K/uL Eos # (Auto) 0.2 (0.0-0.7) K/uL Baso # (Auto) 0.0 (0.0-0.1) K/uL Nucleated RBC % 0.0 /100WBC Nucleated RBCs # 0 K/uL Sodium 140 (136-148) mmol/L Potassium 3.5 (3.5-5.1) mmol/L Chloride 101 (98-107) mmol/L Carbon Dioxide 27.9 (21.0-32.0) mmol/L BUN 8 (7.0-18.0) mg/dL Creatinine 1.1 (0.8-1.3) mg/dL Est Cr Clr Drug Dosing 112.88 mL/min Estimated GFR (MDRD) > 60.0 ml/min Glucose 143 H (74-106) mg/dL Calcium 8.2 L (8.5-10.1) mg/dL Total Bilirubin 2.4 H (0.2-1.0) mg/dL AST 53 H (15-37) IU/L ALT 69 H (14-63) IU/L Alkaline Phosphatase 101 (46-116) U/L Troponin I < 0.050 (0.000-0.056) ng/mL Total Protein 7.4 (6.4-8.2) g/dL Albumin 3.6 (3.4-5.0) g/dL Globulin 3.8 (2.6-4.0) g/dL Albumin/Globulin Ratio 0.9 (0.9-1.6) Amylase 21 L (25-115) U/L Lipase 244 (73-393) U/L Urine Color YELLOW Urine Appearance CLEAR Urine pH 7.5 (5.0-8.0) Ur Specific Ullin 1.010 (1.001-1.035) Urine Protein NEGATIVE (NEGATIVE) mg/dL Urine Glucose (UA) NEGATIVE (NEGATIVE) mg/dL Urine Ketones NEGATIVE (NEGATIVE) mg/dL Urine Occult Blood NEGATIVE (NEGATIVE) Urine Nitrite NEGATIVE (NEGATIVE) Urine Bilirubin NEGATIVE (NEGATIVE) Urine Urobilinogen 2.0 H (<2.0) EU/dL Ur Leukocyte Esterase NEGATIVE (NEGATIVE) Urine RBC NONE SEEN (0-2/HPF) Urine WBC 0-2 (0-5/HPF) Ur Epithelial Cells OCCASIONAL (NONE-FEW) Urine Bacteria FEW (NEGATIVE) Urine Mucus LIGHT (NONE-MOD) Meds: Medications Discontinued Medications Generic Name Dose Route Start Last Admin Trade Name Deisi PRN Reason Stop Dose Admin Fentanyl 50 mcg 01/08/21 16:38 01/08/21 17:07 Fentanyl 50 Mcg/Ml Sdv IVPUSH 01/08/21 16:39 50 mcg ONETIME ONE Administration Fentanyl 50 mcg 01/08/21 17:53 01/08/21 18:03 Fentanyl 50 Mcg/Ml Sdv IVPUSH 01/08/21 17:54 50 mcg ONETIME ONE Administration Sodium Chloride 1,000 mls @ 999 mls/hr 01/08/21 16:38 01/08/21 17:08 Normal Saline IV 01/08/21 17:38 999 mls/hr STAT ONE Administration Ondansetron HCl 4 mg 01/08/21 16:39 01/08/21 17:07 Ondansetron 4 Mg/2 Ml Sdv IVPUSH 01/08/21 16:40 4 mg ONETIME ONE Administration Departure - Departure Time of Disposition: 19:20 Disposition: Home, Self-Care 01 Condition: Fair Clinical Impression: Pancreatic mass - Discharge Information Prescriptions: HYDROcodone/Ibuprofen [Hydrocodone-Ibuprofen 7.5-200] 1 tab PO Q6HR PRN 7 Days #28 tablet PRN Reason: Pain (Severe 7-10) Ondansetron [Zofran ODT] 1 tab PO Q6H PRN #10 tab.dis PRN Reason: Nausea Ondansetron [Zofran ODT] 1 tab PO Q6H PRN #10 tab.dis PRN Reason: Nausea Referrals: Harman Cole MD [Primary Care Provider] - Forms: ED Department Discharge Additional Instructions: The following information is given to patients seen in the emergency department who are being discharged to home. This information is to outline your options for follow-up care. We provide all patients seen in our emergency department with a follow-up referral. The need for follow-up, as well as the timing and circumstances, are variable depending upon the specifics of your emergency department visit. If you don't have a primary care physician on staff, we will provide you with a referral. We always advise you to contact your personal physician following an emergency department visit to inform them of the circumstance of the visit and for follow-up with them and/or the need for any referrals to a consulting specialist. The emergency department will also refer you to a specialist when appropriate. This referral assures that you have the opportunity for follow-up care with a specialist. All of these measure are taken in an effort to provide you with optimal care, which includes your follow-up. Under all circumstances we always encourage you to contact your private physician who remains a resource for coordinating your care. When calling for follow-up care, please make the office aware that this follow-up is from your recent emergency room visit. If for any reason you are refused follow-up, please contact the [facility] Emergency Department at and asked to speak to the emergency department charge nurse. 1. You may take your pain medication every 6 hours as needed. No driving or operating machinery 2. Nausea medicine under your tongue every 6 hours as needed for vomiting. 3. Drink plenty of fluids. 4. Avoid greasy fatty foods 5. A copy of your CT scan has been provided. Please share with your primary provider. 6. Make an appointment tomorrow morning with your primary provider to be seen Thursday or Thursday next week. Sepsis Event Note (ED) - Evaluation Sepsis Screening Result: No Definite Risk - Focused Exam Vital Signs: Vital Signs Temp Pulse Resp BP Pulse Ox 01/08/21 16:09 37.1 C 88 18 157/109 H 97
--- NOTE | 2021-01-08 18:02 | CT ---
indication: Abdominal pain radiating to the back Technique: Volumetric multidetector CT images of the abdomen and pelvis were without the administration of intravenous contrast. Comparison: None available. Findings: There is demonstration of basilar atelectasis versus scar. The liver is moderately enlarged with hepatic steatosis. There is no definite focal abnormality. There is prior cholecystectomy. There is no significant common biliary ductal dilatation or abrupt cut off. Spleen is normal in size and attenuation with a small splenule just anterior. The stomach and duodenum are grossly unremarkable. There is demonstration of a cystic mass lesion within the head of the pancreas measuring 4.5 x 3.9 centimeters in greatest dimension with mild peripancreatic inflammatory changes. The adrenal glands are unremarkable. There is no evidence of radiopaque calculus or hydronephrosis. The colon is predominantly decompressed with minimal descending and sigmoid diverticulosis. There is no significant pericolonic inflammatory change. The appendix is within normal limits. There is no significant mesenteric, retroperitoneal, or pelvic sidewall lymph nodes. The aorta is nonaneurysmal. There is no significant atherosclerotic disease appreciated. The solid pelvic viscera are grossly unremarkable. There is no free fluid or free air. The anterior abdominal wall is intact without significant hernias. The lumbar vertebral body heights are grossly maintained with minimal endplate Schmorl`s defects. There is moderate facet arthrosis. There is no evidence of displaced fracture or dislocation. Impression: Demonstration of a cystic mass lesion with solid internal attenuation within the head of the pancreas measuring 4.5 x 3.9 centimeters with peripheral inflammatory change which could represent a complicated pseudocyst in the setting of pancreatitis, an underlying pancreatic neoplasm is not excluded. Follow-up with MRCP may be useful for improved characterization. Moderate to severe hepatomegaly and hepatic steatosis. Prior cholecystectomy. Otherwise, no definite additional acute intra-abdominal abnormality is appreciated. Please note that all CT scans at this facility use dose modulation, iterative reconstruction, and/or weight-based dosing when appropriate to reduce radiation dose to as low as reasonably achievable. Dictated by Matt Mensah MD @ 01/08/2021 6:00:45 PM (Electronically Signed)
[2021-01-08 19:24] VITALS: BP 105/69
[2021-01-08 19:42] VITALS: PULSE 82
== END 2021-01-08 19:42 | disposition home or self-care (01) ==
LOC: MW.ED 15:55
DX: R19.00 Intra-abdominal and pelvic swelling, mass and lump, unspecified site (principal); E78.00 Pure hypercholesterolemia, unspecified; I10 Essential (primary) hypertension; Z79.899 Other long term (current) drug therapy
CPT/HCPCS: 36415; 74176; 80053; 81001; 82150; 83690; 84484; 85025; 93005; 96374; 96375; 96376; 99284; J2405; J3010; J7030